=== PATIENT | male | born 1960 | race Caucasian/White ===

== ENCOUNTER 2021-08-25 14:41 | Emergency (ER) | payer MEDICARE, MEDICAID, SELFPAY ==
[2021-08-25 14:51] VITALS: BP 158/88; PULSE 113; PULSE 92; RESP 16; TEMP 36.9; O2SAT 96; BMI 23.5
--- NOTE | 2021-08-25 14:52 | ED.PSYCH ---
HPI - Psych General Chief Complaint: Psychiatric Symptoms Stated Complaint: crisis Time Seen by Provider: 08/25/21 14:44 Source: patient and EMS Mode of arrival: EMS Limitations: other (dementia - cognitive impairment) History of Present Illness complaint: other (agitation with staff at SNF) Onset (ago): day(s) (today) Duration: constant History of same: Yes Relieving factors: none Exacerbating factors: other (doesn't have money to buy cigarettes) Context: other (became agitated when he couldn't smoke a cigarette but he doesn't have money to buy them) Associated psychiatric symptoms: other (agitation) Associated symptoms: denies other symptoms Treatments prior to arrival: none Related Data Allergies Allergy/AdvReac Type Severity Reaction Status Date / Time No Known Allergies Allergy Verified 08/25/21 14:57 Review of Systems Review of Systems: ROS unable to be obtained due to dementia and cogntive impairment [facility] Past Medical History Source: nursing notes reviewed Medical History (Updated 08/25/21 @ 15:28 by Sindhu Pate DO) Dementia Diabetes HTN (hypertension) Schizophrenia Social History Social History (Updated 08/25/21 @ 14:55 by Sindhu Pate DO) Patient Tobacco Use Status: Current everyday Tobacco user Advance Directives: No Advance Directives Information Provided: No Physical Exam Vital Signs: Vital Signs: Last Vital Signs Temp 98.4 F 08/25/21 14:51 Pulse 92 08/25/21 14:51 Resp 16 08/25/21 14:51 Pulse Ox 96 08/25/21 14:51 BMI result Body Mass Index 23.5 Appearance: Alert. Oriented X to self. No acute distress. you like to fight? I'll kick all your asses. Eyes: Pupils equal, round and reactive to light. ENT: Pharynx normal. Neck: Normal inspection. Neck supple. CVS: Normal heart rate and rhythm. Pulses normal. Respiratory: No respiratory distress. Breath sounds normal. Abdomen: Soft and nontender. Skin: Skin warm and dry. Normal skin color. Normal skin turgor. Extremities: No lower extremity edema. No calf ttp Neuro: Oriented X 1. No motor deficit. No sensory deficit. Course Course Course Narrative: signed out to Taras CARVAJAL pending workup and CARE team consult MDM - Psych MDM Narrative Medical decision making narrative: 66 yo male with DM, HTN, schizophrenia, dementia here with c/o being agitated at his SNF due to not being able to smoke. He is making threats towards the staff because of this. He would be able to smoke if he had money per his reports. Will obtain basic labs and refer to CARE team. Lab Data Result diagrams: 08/25/21 15:15 08/25/21 15:15 Labs: Lab Results 08/25/21 08/25/21 08/25/21 Range/Units 15:15 15:15 15:15 WBC 6.2 (4.8-10.8) X10*3/uL RBC 4.14 L (4.60-5.80) X10*6/uL Hgb 12.4 L (14.0-18.0) g/dl Hct 35.3 L (42.0-52.0) % MCV 85.3 (80.0-98.0) fL MCH 30.0 (27.0-33.0) pg MCHC 35.1 (31.0-36.0) g/dl RDW 12.9 (11.0-16.0) % Plt Count 210 (160-400) X10*3/uL MPV 11.1 (9.4-12.4) fL Immature Gran % (Auto) 0.2 (0.0-0.4) % Neut % (Auto) 52.6 (45-73) % Lymph % (Auto) 33.9 (20-40) % [place] % (Auto) 12.2 H (2-11) % Eos % (Auto) 0.8 (0-4) % Baso % (Auto) 0.3 (0-2) % Lymph # (Auto) 2.1 (1.2-4.9) X10*3/uL [place] # (Auto) 0.8 (0.1-1.2) X10*3/uL Eos # (Auto) 0.1 (0.0-0.4) X10*3/uL Baso # (Auto) 0.0 (0.0-0.2) X10*3/uL Abs Immat Gran (auto) 0.01 (0.00-0.03) X10*3/uL Absolute Neuts (auto) 3.2 (2.0-8.3) x10*3/uL Absolute Nucleated RBC 0.000 (0.0-0.012) X10*3/uL Nucleated RBC % (auto) 0.0 (0.0-0.2) /100WBC Sodium 130 L (135-145) mmol/L Potassium 4.4 (3.3-5.1) mmol/L Chloride 97 (96-108) mmol/L Carbon Dioxide 21 L (22-29) mmol/L Anion Gap 16 (12-20) BUN 9 (9-16) mg/dL Creatinine 0.68 (0.5-1.4) mg/dL Estim Creat Clear Calc 107.3 Estimated GFR > 60 Random Glucose 165 H (60-115) mg/dL Calcium 9.3 (8.4-10.2) mg/dL Total Bilirubin 0.4 (0.0-1.0) mg/dL Direct Bilirubin 0.2 (0.0-0.5) mg/dL AST 7 (5-37) U/L ALT 7 (0-40) U/L Alkaline Phosphatase 58 (39-117) U/L Total Protein 6.9 (6.5-8.0) g/dL Albumin 4.0 (3.5-5.0) g/dL COVID-19 ([facility]) Negative (Negative) COVID-19 Clin Com See Note Discharge Plan Discharge Clinical Impression: Schizophrenia Qualifiers: Schizophrenia type: unspecified Qualified Code(s): F20.9 - Schizophrenia, unspecified Patient Disposition: Still a Patient
[2021-08-25 15:21] LABS: MANUAL DIFF FLAG NO
[2021-08-25 15:29] LABS: Basophils Percent Auto 0.3 % (0-2); Eosinophils Absolute Auto 0.1 X10*3/uL (0.0-0.4); Eosinophils Percent Auto 0.8 % (0-4); Hematocrit 35.3 % (42.0-52.0); Hemoglobin 12.4 g/dl (14.0-18.0); Imm Gran Abs Auto 0.01 X10*3/uL (0.00-0.03); Imm Gran Pct Auto 0.2 % (0.0-0.4); Lymphocytes Absolute Auto 2.1 X10*3/uL (1.2-4.9); Lymphocytes Percent Auto 33.9 % (20-40); Mean Corpuscular HGB Conc 35.1 g/dl (31.0-36.0); Mean Corpuscular Volume 85.3 fL (80.0-98.0); Mean Platelet Volume 11.1 fL (9.4-12.4); Monocytes Absolute Auto 0.8 X10*3/uL (0.1-1.2); Monocytes Percent Auto 12.2 % (2-11); Neutrophils Absolute Auto 3.2 x10*3/uL (2.0-8.3); Neutrophils Percent Auto 52.6 % (45-73); Platelet Count 210 X10*3/uL (160-400); Red Blood Count 4.14 X10*6/uL (4.60-5.80); Red Cell Distribution Width 12.9 % (11.0-16.0); White Blood Count 6.2 X10*3/uL (4.8-10.8)
[2021-08-25 15:38] LABS: Alanine Aminotransferase 7 U/L (0-40); Alkaline Phosphatase 58 U/L (39-117); Anion Gap 16 (12-20); Aspartate Amino Transferase 7 U/L (5-37); Bilirubin Direct 0.2 mg/dL (0.0-0.5); Bilirubin Total 0.4 mg/dL (0.0-1.0); Blood Urea Nitrogen 9 mg/dL (9-16); COVID-19 Test Negative (Negative); Calcium 9.3 mg/dL (8.4-10.2); Carbon Dioxide 21 mmol/L (22-29); Chloride 97 mmol/L (96-108); Creatinine Clr Calc Pharmacy 107.3; Estimated Glomerular Filt Rate > 60; Glucose Random 165 mg/dL (60-115); IDNOW Serial# 55D5AD1C; Potassium 4.4 mmol/L (3.3-5.1); Sodium 130 mmol/L (135-145); Total Protein 6.9 g/dL (6.5-8.0)
[2021-08-25] MEDS: Nicotine 14 MG PATCH.TD24 TRANSDERMA (16:14)
[2021-08-25 20:20] LABS: Appearance Urine HAZY; Color Urine STRAW; Glucose Urine UA 100 MG/DL (NEG); Leukocyte Esterase Urine NEG (NEG); Nitrite Urine NEG (NEG); Specific Gravity - Urine <= 1.005 (1.005-1.025); Urine Blood NEG (NEG); Urine Ketones NEG (NEG); Urine Protein NEG (NEG-TRACE)
[2021-08-25 20:36] LABS: Amphetamine Screen Urine Not Detected (Not Detect); Barbiturates, Urine Not Detected (Not Detect); Benzodiazepines Screen Urine Not Detected (Not Detect); Cannabinoid Screen Urine Not Detected (Not Detect); Cocaine Screen Urine Not Detected (Not Detect); Fentanyl, urine Not Detected (Not Detect); Opiate Screen Urine Not Detected (Not Detect); Phencyclidine Screen Urine Not Detected (Not Detect)
--- NOTE | 2021-08-25 20:55 | PHA.MEDREC ---
Pharmacy Consult ? Medication Reconciliation Nursing has completed the medication reconciliation and Pharmacy has reviewed.
[2021-08-25 21:01] LABS: Acetaminophen LAB < 1 mcg/mL (<30); Salicylate < 5.0 mg/dL (15-30)
[2021-08-25 21:06] LABS: Valproate 69.9 mcg/mL (50.0-100.0)
[2021-08-25 21:21] LABS: TSH reflex Free T4 1.44 uIU/mL (0.32-4.0)
--- NOTE | 2021-08-25 21:30 | MHC.CARE ---
Addendum entered by Elizabet Ying, [facility] 08/26/21 02:27: Other information gathered from collateral and documentation sent with pt: HCP is invoked, Kalyani Miranda Jordan [phone] Sinan's Order exp 11/29/2021 Haldol 5mg QAMl 10mg QHS, 5mg BID Alternative: Clozaril 50-250mg QD Invega 9-12mg, 234mg Q8D Dx Schizoaffective disorder, Parkinson's, Mild Cognitive Decline Original Note: CARE team contacted [facility] bindery production manager school business administrator Abeba Wells NP. Abeba reported that the pt has been exhibiting increasing agitation and hallucinations and was not responding to additional 5mg olanzapine TID PRN that was started on Thursday08/23/21. She is requesting that the pt be evaluated by crisis and psychiatry. BHN smart sheet sent. ETA 3rd shift.
[2021-08-25] MEDS: OLANZapine 5 MG TABLET PO (21:37)
[2021-08-25] MEDS: OLANZapine 10 MG TABLET PO (21:37)
[2021-08-25] MEDS: Acetaminophen 325 MG TABLET 650 MG PO (23:06)
[2021-08-25 23:26] VITALS: BP 181/93; PULSE 126; RESP 17; TEMP 36.5; O2SAT 96
[2021-08-25] MEDS: Nicotine Polacrilex 2 MG GUM BUCCAL (23:42)
[2021-08-26] MEDS: Nicotine Polacrilex 2 MG GUM BUCCAL ×2 (04:12→12:28)
[2021-08-26 04:40] VITALS: RESP 20
[2021-08-26] MEDS: OLANZapine 10 MG VIAL 5 MG IM (04:40)
--- NOTE | 2021-08-26 04:52 | PC.NURSE ---
Patient was whole night, loud, restless, and disruptive, requiring constant redirection, at 0400 patient was even more louder, disruptive, and intrusive, provider notified ordered Olanzapine 5 mg IM/administered as ordered at 0440 for comfort, patient is still loud and disruptive, observed on 1:1 for safety, patient is awaiting BHN assessment for over 10 hours and no update on ETA, VSS, will continue to monitor.
[2021-08-26 04:55] VITALS: RESP 20
[2021-08-26 05:10] VITALS: RESP 20
[2021-08-26 05:25] VITALS: RESP 20
[2021-08-26 05:40] VITALS: RESP 20
--- NOTE | 2021-08-26 06:31 | PC.NURSE ---
Patient is still awake, loud and disruptive, no effect from Olanzapine 5 mg IM, patient needs constant redirection, will continue to monitor.
[2021-08-26] MEDS: Divalproex Sodium Sprinkles 125 MG CAP.DR.SPR 500 MG PO ×2 (08:23→12:28)
[2021-08-26] MEDS: glipiZIDE 10 MG TABLET PO (08:23)
[2021-08-26] MEDS: Gabapentin 300 MG CAPSULE PO (08:23)
[2021-08-26] MEDS: Benztropine Mesylate 1 MG TABLET PO (08:24)
[2021-08-26] MEDS: Losartan Potassium 50 MG TABLET PO (08:24)
[2021-08-26] MEDS: amLODIPine Besylate 10 MG TABLET PO (08:24)
[2021-08-26] MEDS: OLANZapine 10 MG TABLET PO (08:24)
[2021-08-26] MEDS: metFORMIN HCl 1,000 MG TABLET 1000 MG PO (08:24)
== END 2021-08-26 15:11 | disposition skilled nursing facility (03) ==
PROVIDERS: Physician Assistant; Emergency Provider Emergency Medicine; PCP Internal Medicine
DX: F20.9 Schizophrenia, unspecified (principal); E11.9 Type 2 diabetes mellitus without complications; I10 Essential (primary) hypertension; F03.90 Unspecified dementia, unspecified severity, without behavioral disturbance, psychotic disturbance, mood disturbance, and anxiety; F17.200 Nicotine dependence, unspecified, uncomplicated; Z20.822 Contact with and (suspected) exposure to COVID-19
CPT/HCPCS: 36415; 80048; 80076; 80143; 80164; 80179; 80307; 81003; 84443; 85025; 87635; 96372; 99285

== ENCOUNTER 2023-02-13 13:38 | Inpatient (IN) | payer MEDICARE, MEDICAID, SELFPAY ==
--- NOTE | ~2023-02-13 | CT_ITS ---
EXAMINATION: CT ANGIOGRAM OF THE CHEST WITH AND WITHOUT CONTRAST (CT PULMONARY ANGIOGRAM FOR PE) CLINICAL INFORMATION: Reason for Exam Hypoxia; Also COVID Positve COMPARISON: Chest x-ray 02/14/2023 TECHNIQUE: Prior to contrast administration, noncontrast localization images were obtained. Subsequently, multidetector volumetric imaging was performed from the thoracic inlet to below the diaphragms following the administration of 70 mL Omnipaque 350 intravenous contrast. No contrast reaction reported Sagittal, coronal, and MIP oblique sagittal reformatted images were obtained on the CT workstation, uploaded to PACS, and reviewed. This CT examination was performed using dose optimization techniques as appropriate, variously including the following: *Automated exposure control *Adjustment of mA and/or kV according to patient size (this includes techniques or standardized protocols for targeted exams where dose is matched to indication/reason for exam; i.e. extremities or head) *Use of iterative reconstruction technique Total exam dose-length product 352 mGy-cm FINDINGS: QUALITY OF STUDY/CONTRAST BOLUS: Satisfactory. PULMONARY ARTERIES: No central or proximal segmental pulmonary embolus is seen. However, there is limited evaluation of much of the distal vasculature due to respiratory motion artifact. THORACIC AORTA: No evidence of aortic aneurysm or dissection. LUNG: Endotracheal tube tip lies approximately 4 cm above the asher. There are multifocal patchy consolidations in the left upper lobe. Region of atelectasis in the lingula. The left lower lobe is completely opacified and demonstrates volume loss, consistent with collapse, though component of superimposed consolidation cannot be excluded. Left lower lobe airways are opacified. There is patchy consolidation in the posterior right lower lobe. There is a nodular focus in the right middle lobe measuring 9 x 5 mm (average 7 mm) on image 286/481. PLEURA: Trace pleural effusions. No pneumothorax. MEDIASTINUM: Thyroid gland is somewhat heterogeneous. There are subcentimeter mediastinal lymph nodes within the range of normal variation. Cardiac size is within normal limits; no pericardial effusion. No evidence of septal bowing or right heart strain. CORONARY ARTERY CALCIFICATION: Present CHEST WALL/AXILLA: No axillary or internal mammary lymphadenopathy. OSSEOUS STRUCTURES: Degenerative endplate changes in the spine. UPPER ABDOMEN: Unremarkable. No reflux of contrast into the hepatic veins to suggest elevated right heart pressures. CT/CT angio chest PE protocol IMPRESSION: 1. No central or proximal segmental pulmonary embolus identified. Limited evaluation of much of the distal vasculature due to respiratory motion artifact. 2. Multifocal patchy consolidations in the left upper lobe and right lower lobe, consistent with pneumonia. 3. Complete opacification of the left lower lobe with volume loss, consistent with collapse, though component of superimposed consolidation cannot be excluded. Left lower lobe airways are opacified, and therefore this may represent postobstructive atelectasis. 4. Trace pleural effusions. 5. Right middle lobe nodular focus with average size of 7 mm. According to the UPDATED 2017 Fleischner Society recommendations, the advised follow-up imaging for a single 6-8 mm solid nodule is: LOW RISK PATIENT: CT at 6-12 months, then consider CT at 18-24 months. HIGH RISK PATIENT: CT at 6-12 months, then at 18-24 months. VTE: negative.
--- NOTE | ~2023-02-13 | XR_ITS ---
EXAMINATION: XR CHEST CLINICAL INFORMATION: Status post bronchoscopy. COMPARISON: Chest radiograph dated 02/14/2023. TECHNIQUE: Frontal view of the chest was obtained. FINDINGS: The heart, great vessels, pulmonary vasculature and mediastinum are stable, accounting for patient rotation. The endotracheal tube tip is situated approximately 3.9 cm superior to the asher. An orogastric tube is seen with tip situated distal to the gastric cardia and cut off of the field of view. The orogastric tube appears somewhat coiled within the mouth. There is significant interim improvement in aeration of the left lung, with mild to moderate residual left lower lung field pleural and parenchymal disease. The right lung appears clear. There is no pneumothorax. No acute osseous abnormality is seen. XR/XR chest 1V IMPRESSION: 1. There is significant interim improvement in aeration status-post bronchoscopy. Mild to moderate residual left base pleural and parenchymal disease is seen. There is no pneumothorax. 2. Support tubes and catheters are positioned as detailed.
--- NOTE | ~2023-02-13 | XR_ITS ---
EXAMINATION: XR CHEST CLINICAL INFORMATION: Hypoxia COMPARISON: Previous chest x-ray most recent February 15 TECHNIQUE: Frontal view of the chest was obtained. FINDINGS: Endotracheal tube tip 5.6 cm above the asher. Nasogastric tube projects over proximal stomach. Cardiac and mediastinal contours are stable. Improving left-sided airspace disease and airspace disease at the right lung base. No pleural effusion or pneumothorax. XR/XR chest 1V IMPRESSION: Satisfactory position of endotracheal and nasogastric tubes. Improving bilateral airspace disease, left greater than right
--- NOTE | ~2023-02-13 | XR_ITS ---
EXAMINATION: XR CHEST CLINICAL INFORMATION: Endotracheal tube placement COMPARISON: 02/14/2023 TECHNIQUE: Frontal view of the chest was obtained. FINDINGS: Endotracheal tube with tip in the midtrachea. Enteric tube with tip in the stomach. A side hole is in the distal esophagus. The cardiac silhouette is obscured. There is volume loss of the left lung with near complete opacification. There is abrupt tapering of the left mainstem bronchus. The right lung is clear. No pleural effusion or pneumothorax. No acute osseous abnormality. XR/XR chest 1V IMPRESSION: 1. Endotracheal tube with tip in the midtrachea. 2. Enteric tube with tip in the stomach. A side hole is in the distal esophagus. 3. Volume loss of the left lung with near complete opacification. Abrupt tapering of the left mainstem bronchus, which may reflect mucous plugging.
--- NOTE | ~2023-02-13 | XR_ITS ---
EXAMINATION: XR CHEST CLINICAL INFORMATION: Hypoxia. Covid COMPARISON: 02/14/23 TECHNIQUE: Upright frontal portable view of the chest was obtained. FINDINGS: Multiple devices overlie the patient. The patient is tilted to the left. The endotracheal tube is approximately 5 cm above asher. Enteric tube extends into the abdomen tip not included. The port is at or near the expected GE junction Cardiac size within normal limits. No large hilar mass. There is opacification at the left base medially. There are some scattered left perihilar opacities. No pneumothorax XR/XR chest 1V IMPRESSION: Limited study. Left base opacity persists. Perihilar opacities likely unchanged but positioning limits detail
--- NOTE | ~2023-02-13 | XR_ITS ---
EXAMINATION: CR CHEST CLINICAL INFORMATION: Hypoxia. COMPARISON: Chest x-ray dated 02/13/2023. TECHNIQUE: AP upright portable view of the chest was obtained. FINDINGS: EKG leads overlie the chest. The cardiomediastinal silhouette is within normal limits in size. Lungs bilaterally are symmetrically expanded. There is dense opacity seen in the retrocardiac left lung base with complete obscuration of the left hemidiaphragm, possibly due to a combination of small volume fluid and either associated atelectasis or pneumonia. There is associated volume loss in the left hemithorax and there may be slight shift of the mediastinum toward the left side versus artifactual appearance related to patient rotation and slight tilt. The right lung is fully inflated and without focal pulmonary process. Mild convex right thoracolumbar scoliosis is seen, unchanged. XR/XR chest 1V IMPRESSION: Dense opacity in the retrocardiac left lung base, possibly due to a combination of small volume fluid and associated left basilar atelectasis or pneumonia. Close clinical correlation and follow-up is recommended. Consider PA and lateral view of the chest for reassessment.
--- NOTE | ~2023-02-13 | XR_ITS ---
EXAMINATION: XR CHEST CLINICAL INFORMATION: Hypoxic COMPARISON: None available. TECHNIQUE: Frontal view of the chest was obtained. FINDINGS: Heart and mediastinum within normal limits. No gross vascular congestion. Mild increased basilar markings, left greater than right. Bony structures are intact. XR/XR chest 1V IMPRESSION: Bibasilar increased markings, likely atelectasis, pneumonia not excluded, particularly in the retrocardiac region.
[2023-02-13 14:07] VITALS: BP 178/90; PULSE 103; PULSE 120; RESP 24; TEMP 38.1; O2SAT 86; O2SAT 91; BMI 19.7
--- NOTE | 2023-02-13 14:14 | ECG_ITS ---
Test Reason : SOB Blood Pressure : / mmHG Vent. Rate : 117 BPM Atrial Rate : 117 BPM P-R Int : 130 ms QRS Dur : 084 ms QT Int : 310 ms P-R-T Axes : 058 -47 081 degrees QTc Int : 432 ms Sinus tachycardia Left anterior fascicular block Left ventricular hypertrophy with repolarization abnormality ( R in aVL ) Abnormal ECG No previous ECGs available Referred By: Destinee Dillon Electronically Signed By:DANAE KAISER MD
--- NOTE | 2023-02-13 14:18 | ED_ITS ---
HPI - SOB/Dyspnea General Chief Complaint: Dyspnea Stated Complaint: LOW O2 Time Seen by Provider: 02/13/23 13:48 Source: EMS Mode of arrival: EMS Limitations: altered mental status History of Present Illness HPI Narrative: Patient comes to the emergency room from [facility] [place]. Patient is nonverbal at baseline. According to EMS, the staff reported that they found the patient during nursing rounds to be hypoxic, oxygen saturation 86% on room air, tachypneic. Patient is not oxygen dependent. Patient does have history of COPD with hypoxic respiratory failure. According to EMS, the patient's nurse at the facility had never work with him before and did not know any specifics about the patient's baseline. Related Data Home Medications Medication Instructions Recorded Confirmed Nicorette 2 mg PO Q1H PRN Nicotine Cravings 08/25/21 08/25/21 amlodipine 10 mg tablet 10 mg PO QAM 08/25/21 08/25/21 benztropine 1 mg tablet 1 mg PO BID@0900,1700 08/25/21 08/25/21 divalproex 125 mg capsule,delayed 500 mg PO BID@0900,1700 08/25/21 08/25/21 release sprinkle divalproex 125 mg capsule,delayed 500 mg PO DAILY@1300 08/25/21 08/25/21 release sprinkle gabapentin 300 mg tablet 300 mg PO BID 08/25/21 08/25/21 glipizide 10 mg tablet, extended 10 mg PO DAILY 08/25/21 08/25/21 release 24 hr losartan 50 mg tablet 50 mg PO QAM 08/25/21 08/25/21 metformin 1,000 mg tablet 1,000 mg PO BID@0900,1700 08/25/21 08/25/21 olanzapine 10 mg tablet 10 mg PO BID 08/25/21 08/25/21 olanzapine 5 mg tablet 5 mg PO TID PRN Agitation 08/25/21 08/25/21 Allergies Allergy/AdvReac Type Severity Reaction Status Date / Time No Known Allergies Allergy Verified 02/13/23 14:06 Review of Systems 2 Review of Systems: Yes Unobtainable due to mental condition PMFSH Past Medical History Medical History COPD (chronic obstructive pulmonary disease) HTN (hypertension) Diabetes Schizophrenia Dementia Social History Social History (Updated 08/25/21 @ 14:55 by Cecelia Pate DO) Alcohol intake: unknown Patient Tobacco Use Status: Current everyday Tobacco user Advance Directives: Yes Advance Directives on File: Yes Advance Directives Date on File: 08/27/21 Physical Exam 2 Vital Signs: Vital Signs: Last Vital Signs Temp 98.5 F 02/13/23 16:13 Pulse 84 02/13/23 17:52 Resp 21 H 02/13/23 17:52 BP 142/73 H 02/13/23 17:52 Pulse Ox 99 02/13/23 17:52 O2 Del Method Nasal Cannula 02/13/23 17:52 O2 Flow Rate 6 02/13/23 17:52 Oxygen Flow Rate 15 02/13/23 14:07 BMI result Body Mass Index 19.7 Const: Other: Appearance: Somnolent, easily arousable, nonverbal, lethargic Eyes: Pupils equal, round and reactive to light. ENT: Dry mucous membranes Neck: Normal inspection. Neck supple. No lymph nodes noted. No crepitus CVS: Normal heart rate and rhythm. Pulses normal. Normal S1 and S2 Respiratory: Tachypnea, heart rate in the 30s, bilateral rales and crackles. Abdomen: Soft , does not seem tender, No rigidity. No distention. Skin: Skin warm and clammy. Normal skin color. Normal skin turgor. Extremities: No lower extremity edema. No Lacerations. No Rash Neuro: Somnolent, easily arousable, unable to participate in cranial nerve assessment Psych: calm, lethargic Course Course Course Narrative: -of the patient's labs and imaging pending. -patient arrived on 10 L of oxygen saturating 93%. Patient now switched to nasal cannula, saturating in the mid 90s with 4 L. -patient empirically being treated with IV fluids and levofloxacin. Medications Administered Discontinued Medications Generic Name Dose Route Start Last Admin Trade Name Freq PRN Reason Stop Dose Admin Acetaminophen 650 mg 02/13/23 14:20 02/13/23 15:06 Acetaminophen Supp 650 Mg Supp.Rect SC 02/13/23 14:21 650 mg ONCE ONE Administration Sodium Chloride 1,000 mls @ 999 mls/hr 02/13/23 14:14 02/13/23 16:07 Ns IVCONT 02/13/23 15:14 Infused .Q1H1M ONE Infusion Levofloxacin 500 mg in 100 mls @ 100 mls/hr 02/13/23 14:18 02/13/23 16:29 Levaquin IV 02/13/23 15:17 Infused ONCE ONE Infusion Medical Decision Making Medical Decision Making [facility] Narrative: -patient tested positive for COVID-19, patient hypoxic, patient known 6 L of oxygen -as mentioned above, patient already received IV fluids, levofloxacin Decadron -my interpretation of chest x-ray: Possible pneumonia especially in the left lobe -discussed the patient with Dr. Boswell, patient being admitted Differential Diagnosis Differential Diagnoses: The differential diagnosis associated with the presentation includes (Influenza, COVID, pneumonia, COPD) Admission/Observation Consideration of admission/observation: Escalation of care including admission/observation considered Consult Healthcare Provider Management of the patient was discussed with: Hospitalist Lab Data [facility] Lab Attestation statement: I reviewed the patient's lab results. 02/13/23 15:05 02/13/23 15:05 Labs: Lab Results 02/13/23 02/13/23 02/13/23 Range/Units 14:52 15:03 15:05 WBC 6.6 (4.8-10.8) X10*3/uL RBC 4.20 L (4.60-5.80) X10*6/uL Hgb 12.7 L (14.0-18.0) g/dl Hct 38.3 L (42.0-52.0) % MCV 91.2 (80.0-98.0) fL MCH 30.2 (27.0-33.0) pg MCHC 33.2 (31.0-36.0) g/dl RDW 13.2 (11.0-16.0) % Plt Count 284 D (160-400) X10*3/uL MPV 10.7 (9.4-12.4) fL Immature Gran % (Auto) 2.0 H (0.0-0.4) % Neut % (Auto) 57.5 (45-73) % Lymph % (Auto) 27.1 (20-40) % [place] % (Auto) 12.9 H (2-11) % Eos % (Auto) 0.3 (0-4) % Baso % (Auto) 0.2 (0-2) % Lymph # (Auto) 1.8 (1.2-4.9) X10*3/uL [place] # (Auto) 0.9 (0.1-1.2) X10*3/uL Eos # (Auto) 0.0 (0.0-0.4) X10*3/uL Baso # (Auto) 0.0 (0.0-0.2) X10*3/uL Abs Immat Gran (auto) 0.13 H (0.00-0.03) X10*3/uL Absolute Neuts (auto) 3.8 (2.0-8.3) x10*3/uL Absolute Nucleated RBC 0.000 (0.0-0.012) X10*3/uL Nucleated RBC % (auto) 0.0 (0.0-0.2) /100WBC PT 12.9 (11.1-13.3) SEC INR 1.1 (0.9-1.1) VBG pH (7.32-7.43) VBG pCO2 mmHg VBG pO2 mmHg VBG HCO3 (22-26) mmol/L VBG O2 Saturation % VBG Base Excess mmol/L Sodium 139 (135-145) mmol/L Potassium 4.0 (3.3-5.1) mmol/L Chloride 108 (96-108) mmol/L Carbon Dioxide 22 (22-29) mmol/L Anion Gap 13 (12-20) BUN 14 (9-16) mg/dL Creatinine 0.57 (0.5-1.4) mg/dL Estim Creat Clear Calc 122.0 Estimated GFR > 60 Random Glucose 164 H (60-115) mg/dL Lactic Acid 0.8 (0.5-2.0) mmol/L Calcium 9.5 (8.4-10.2) mg/dL Total Bilirubin 0.4 (0.0-1.0) mg/dL Direct Bilirubin 0.2 (0.0-0.5) mg/dL AST 29 (5-37) U/L ALT 18 (0-40) U/L Alkaline Phosphatase 54 (39-117) U/L Troponin I High Sens 10.3 (<3.5-35.0) ng/L B-Natriuretic Peptide 30 (<100) pg/mL Total Protein 6.7 (6.5-8.0) g/dL Albumin 3.3 L (3.5-5.0) g/dL COVID-19 ([facility]) Positive A (Negative) COVID-19 Clin Com See Note Influenza Type A ([facility]) Negative (Negative) Influenza Type B ([facility]) Negative (Negative) Influenza A & B Note See Note 02/13/23 Range/Units 15:12 WBC (4.8-10.8) X10*3/uL RBC (4.60-5.80) X10*6/uL Hgb (14.0-18.0) g/dl Hct (42.0-52.0) % MCV (80.0-98.0) fL MCH (27.0-33.0) pg MCHC (31.0-36.0) g/dl RDW (11.0-16.0) % Plt Count (160-400) X10*3/uL MPV (9.4-12.4) fL Immature Gran % (Auto) (0.0-0.4) % Neut % (Auto) (45-73) % Lymph % (Auto) (20-40) % [place] % (Auto) (2-11) % Eos % (Auto) (0-4) % Baso % (Auto) (0-2) % Lymph # (Auto) (1.2-4.9) X10*3/uL [place] # (Auto) (0.1-1.2) X10*3/uL Eos # (Auto) (0.0-0.4) X10*3/uL Baso # (Auto) (0.0-0.2) X10*3/uL Abs Immat Gran (auto) (0.00-0.03) X10*3/uL Absolute Neuts (auto) (2.0-8.3) x10*3/uL Absolute Nucleated RBC (0.0-0.012) X10*3/uL Nucleated RBC % (auto) (0.0-0.2) /100WBC PT (11.1-13.3) SEC INR (0.9-1.1) VBG pH 7.61 H* (7.32-7.43) VBG pCO2 21 mmHg VBG pO2 266 mmHg VBG HCO3 22 (22-26) mmol/L VBG O2 Saturation 100.0 % VBG Base Excess 2.8 mmol/L Sodium (135-145) mmol/L Potassium (3.3-5.1) mmol/L Chloride (96-108) mmol/L Carbon Dioxide (22-29) mmol/L Anion Gap (12-20) BUN (9-16) mg/dL Creatinine (0.5-1.4) mg/dL Estim Creat Clear Calc Estimated GFR Random Glucose (60-115) mg/dL Lactic Acid (0.5-2.0) mmol/L Calcium (8.4-10.2) mg/dL Total Bilirubin (0.0-1.0) mg/dL Direct Bilirubin (0.0-0.5) mg/dL AST (5-37) U/L ALT (0-40) U/L Alkaline Phosphatase (39-117) U/L Troponin I High Sens (<3.5-35.0) ng/L B-Natriuretic Peptide (<100) pg/mL Total Protein (6.5-8.0) g/dL Albumin (3.5-5.0) g/dL COVID-19 ([facility]) (Negative) COVID-19 Clin Com Influenza Type A ([facility]) (Negative) Influenza Type B ([facility]ENE) (Negative) Influenza A & B Note Independent Interpretation I performed an independent interpretation of an: Plain X-Ray Radiology Impression Discussion of test interpretation with radiology: I have reviewed the radiologist's reading. Radiologist Impression: FINDINGS: Heart and mediastinum within normal limits. No gross vascular congestion. Mild increased basilar markings, left greater than right. Bony structures are intact. XR/XR chest 1V IMPRESSION: Bibasilar increased markings, likely atelectasis, pneumonia not excluded, particularly in the retrocardiac region. External Record Review External record reviewed: Other (I reviewed [facility] medical records) Critical Care Time Critical Care Time Critical Care Time: Yes Total Critical Care Time: 75 Attestation: I have personally provided critical care time. Time includes review of lab data, radiology results, discussion with consultants, and monitoring for potential decompensation. Intervention performed as documented. Discharge Plan Discharge Clinical Impression: COVID-19, Pneumonia Patient Disposition: Admitted As Inpatient Prescriptions: No Action amlodipine 10 mg Tablet 10 mg PO QAM benztropine 1 mg Tablet 1 mg PO BID@0900,1700 divalproex 125 mg Capsule, Delayed Rel Sprinkle 500 mg PO BID@0900,1700 divalproex 125 mg Capsule, Delayed Rel Sprinkle 500 mg PO DAILY@1300 gabapentin 300 mg Tablet 300 mg PO BID losartan 50 mg Tablet 50 mg PO QAM metformin 1,000 mg Tablet 1,000 mg PO BID@0900,1700 olanzapine 10 mg Tablet 10 mg PO BID olanzapine 5 mg Tablet 5 mg PO TID PRN (Reason: Agitation) Nicorette 2 mg 2 mg PO Q1H PRN (Reason: Nicotine Cravings) glipizide 10 mg Tablet Extended Release 24hr 10 mg PO DAILY
[2023-02-13 14:56] VITALS: PULSE 115; RESP 26; O2SAT 93
[2023-02-13] MEDS: Acetaminophen Supp 650 MG SUPP.RECT PR (15:06)
[2023-02-13] MEDS: levoFLOXacin/D5W 500 MG/100 ML PIGGYBACK 100 MG IV (15:06)
[2023-02-13] MEDS: 0.9 % Sodium Chloride 1,000 ML 999 ML IVCONT (15:06)
[2023-02-13 15:14] LABS: MANUAL DIFF FLAG NO
[2023-02-13 15:20] LABS: VBG Base Excess 2.8 mmol/L; VBG HCO3 22 mmol/L (22-26); VBG pCO2 21 mmHg; VBG pH 7.61 (7.32-7.43); VBG pO2 266 mmHg
[2023-02-13 15:21] LABS: INTERNATIONAL NORM RATIO 1.1 (0.9-1.1); Prothrombin Time 12.9 SEC (11.1-13.3)
[2023-02-13 15:26] LABS: Basophils Percent Auto 0.2 % (0-2); Eosinophils Percent Auto 0.3 % (0-4); Hematocrit 38.3 % (42.0-52.0); Hemoglobin 12.7 g/dl (14.0-18.0); Imm Gran Abs Auto 0.13 X10*3/uL (0.00-0.03); Lymphocytes Absolute Auto 1.8 X10*3/uL (1.2-4.9); Lymphocytes Percent Auto 27.1 % (20-40); Mean Corpuscular HGB Conc 33.2 g/dl (31.0-36.0); Mean Corpuscular Hemoglobin 30.2 pg (27.0-33.0); Mean Corpuscular Volume 91.2 fL (80.0-98.0); Mean Platelet Volume 10.7 fL (9.4-12.4); Monocytes Absolute Auto 0.9 X10*3/uL (0.1-1.2); Monocytes Percent Auto 12.9 % (2-11); Neutrophils Absolute Auto 3.8 x10*3/uL (2.0-8.3); Neutrophils Percent Auto 57.5 % (45-73); Platelet Count 284 X10*3/uL (160-400); Red Cell Distribution Width 13.2 % (11.0-16.0); White Blood Count 6.6 X10*3/uL (4.8-10.8)
[2023-02-13 15:28] LABS: Venous Blood Gas Refer to POC result
[2023-02-13 15:30] LABS: Alanine Aminotransferase 18 U/L (0-40); Albumin Level 3.3 g/dL (3.5-5.0); Alkaline Phosphatase 54 U/L (39-117); Anion Gap 13 (12-20); Aspartate Amino Transferase 29 U/L (5-37); Bilirubin Direct 0.2 mg/dL (0.0-0.5); Bilirubin Total 0.4 mg/dL (0.0-1.0); Blood Urea Nitrogen 14 mg/dL (9-16); Calcium 9.5 mg/dL (8.4-10.2); Carbon Dioxide 22 mmol/L (22-29); Chloride 108 mmol/L (96-108); Estimated Glomerular Filt Rate > 60; Glucose Random 164 mg/dL (60-115); Sodium 139 mmol/L (135-145); Total Protein 6.7 g/dL (6.5-8.0)
[2023-02-13 15:30] LABS: Lactic Acid 0.8 mmol/L (0.5-2.0)
[2023-02-13 15:33] LABS: COVID-19 Test Positive (Negative); IDNOW Serial# BCCEAD1C
[2023-02-13 15:34] LABS: B Type Natriuretic Peptide 30 pg/mL (<100)
[2023-02-13 15:37] LABS: Troponin-I High Sensitivity 10.3 ng/L (<3.5-35.0)
[2023-02-13 15:41] LABS: IDNOW Serial# 08D9AD1C; Influenza A Negative (Negative); Influenza B2 Negative (Negative)
--- NOTE | 2023-02-13 15:58 | PC.NURSE ---
xray bedside at this time.
[2023-02-13 16:13] VITALS: BP 146/68; PULSE 94; RESP 18; TEMP 36.9; O2SAT 90
--- NOTE | 2023-02-13 16:14 | PC.NURSE ---
pt O2 decreased to 86% on 3L via NC. pt increased 6L via NC - resting between 90%-91%. otherwise vss and up to date. pt still lethargic at this time. pt able to make eye contact w/ verbal stimuli/sternal rub. still no urine to obtain at this time - will send urine when able. no wob/sob noted at this time. respirations even and unlabored at this time. call reed placed within reach.
[2023-02-13 17:52] VITALS: BP 142/73; PULSE 84; RESP 21; O2SAT 99
[2023-02-13 18:40] LABS: Appearance Urine Clear; Color Urine Yellow; Glucose Urine UA 100 mg/dL (Negative); Leukocyte Esterase Urine Negative (Negative); Nitrite Urine Negative (Negative); Urine Blood Negative (Negative); Urine Ketones 40 mg/dL (Negative); Urine Protein Negative (Neg-Trace)
[2023-02-13] MEDS: dexAMETHasone sod phosphate 4 MG/ML VIAL 6 MG IVPUSH (18:46)
--- NOTE | 2023-02-13 18:50 | PC.NURSE ---
pt medicated per provider order. respirations even and unlabored at this time. call reed placed within reach.
--- NOTE | 2023-02-13 19:15 | P.HPHOSP_ITS ---
History of Present Illness Date of Service: 02/13/23 Chief Complaint: Hypoxia This is a 62-year-old male with pertinent history of essential hypertension, non insulin-dependent diabetes mellitus, mood disorder who was sent to the emergency department for evaluation of hypoxemia. Patient is nonverbal at baseline. Unable to obtain history from the patient. History obtained from ER provider and chart review. Patient was sent from [facility] [place]. He he does not use oxygen at baseline. He was found to be tachypneic and satting 86% on room air and sent to the ER for further evaluation. In the emergency department, patient tested positive for COVID-19. Unable to obtain review of systems. Review of Systems 2 Review of Systems: Yes Unobtainable due to mental condition PMFSH Medical History COPD (chronic obstructive pulmonary disease) HTN (hypertension) Diabetes Schizophrenia Dementia Pertinent family history: Unable to obtain Social History Unable to assess alcohol history related to: Unknown Alcohol intake: unknown Patient Tobacco Use Status: Current everyday Tobacco user Use of substances other than those prescribed or required for medical reasons: Unknown Advance Directives: Yes Advance Directives on File: Yes Advance Directives Date on File: 08/27/21 Meds Allergies Allergy/AdvReac Type Severity Reaction Status Date / Time No Known Allergies Allergy Verified 02/13/23 14:06 Home Medications Medication Instructions Recorded Confirmed Last Taken Type benztropine 1 mg tablet 1 mg PO BID 02/13/23 02/13/23 Unknown History divalproex 250 mg tablet,delayed 250 mg PO DAILY 02/13/23 02/13/23 Unknown History release divalproex 500 mg tablet,delayed 1,000 mg PO BID 02/13/23 02/13/23 Unknown History release famotidine 20 mg tablet 20 mg PO BID 02/13/23 02/13/23 Unknown History gabapentin 300 mg capsule 300 mg PO BID 02/13/23 02/13/23 Unknown History losartan 25 mg tablet 25 mg PO DAILY 02/13/23 02/13/23 Unknown History metformin 1,000 mg tablet 1,000 mg PO BID 02/13/23 02/13/23 Unknown History olanzapine 15 mg tablet 15 mg PO BEDTIME 02/13/23 02/13/23 Unknown History olanzapine 20 mg tablet 20 mg PO BEDTIME 02/13/23 02/13/23 Unknown History paliperidone 9 mg tablet,extended 9 mg PO DAILY 02/13/23 02/13/23 Unknown History release 24 hr paliperidone palmitate 234 mg/1.5 234 mg IM Q28D 02/13/23 02/13/23 Unknown History mL intramuscular syringe ([employer]) permethrin 5 % topical cream 1 appl topical ONCE 02/13/23 02/13/23 Unknown History Physical Exam 2 Vital Signs and Narrative: Vital Signs: Last Vital Signs Temp 98.5 F 02/13/23 16:13 Pulse 84 02/13/23 17:52 Resp 21 H 02/13/23 17:52 BP 142/73 H 02/13/23 17:52 Pulse Ox 99 02/13/23 17:52 O2 Del Method Nasal Cannula 02/13/23 17:52 O2 Flow Rate 6 02/13/23 17:52 Oxygen Flow Rate 15 02/13/23 14:07 BMI result Body Mass Index 19.7 Middle-aged male lying in bed in mild distress on supplemental oxygen Neck supple, no JVD Regular rate and rhythm, S1-S2 heard Bilateral crackles without wheezing Abdomen soft nontender, no guarding, no rigidity Patient is lethargic and eye opening to verbal stimulus, non conversational Psych: Drowsy No pedal edema Results Labs 02/13/23 15:05 02/13/23 15:05 Labs: Laboratory Results - last 24 hr 02/13/23 02/13/23 02/13/23 14:52 15:03 15:05 MCV 91.2 MCH 30.2 MCHC 33.2 RDW 13.2 Plt Count 284 D MPV 10.7 Immature Gran % (Auto) 2.0 H Neut % (Auto) 57.5 Lymph % (Auto) 27.1 [place] % (Auto) 12.9 H Eos % (Auto) 0.3 Baso % (Auto) 0.2 Lymph # (Auto) 1.8 [place] # (Auto) 0.9 Eos # (Auto) 0.0 Baso # (Auto) 0.0 Abs Immat Gran (auto) 0.13 H Absolute Neuts (auto) 3.8 Absolute Nucleated RBC 0.000 Nucleated RBC % (auto) 0.0 PT 12.9 INR 1.1 VBG pH VBG pCO2 VBG pO2 VBG HCO3 VBG O2 Saturation VBG Base Excess Anion Gap 13 Estim Creat Clear Calc 122.0 Estimated GFR > 60 Random Glucose 164 H Lactic Acid 0.8 Calcium 9.5 Total Bilirubin 0.4 Direct Bilirubin 0.2 AST 29 ALT 18 Alkaline Phosphatase 54 B-Natriuretic Peptide 30 Total Protein 6.7 Albumin 3.3 L Urine Color Urine Appearance Urine pH Ur Specific [place] Urine Protein Urine Glucose (UA) Urine Ketones Urine Blood Urine Nitrite Ur Leukocyte Esterase COVID-19 ([facility]) Positive A COVID-19 Clin Com See Note Influenza Type A ([facility]ENE) Negative Influenza Type B (ILENE) Negative Influenza A & B Note See Note 02/13/23 02/13/23 15:12 18:27 MCV MCH MCHC RDW Plt Count MPV Immature Gran % (Auto) Neut % (Auto) Lymph % (Auto) [place] % (Auto) Eos % (Auto) Baso % (Auto) Lymph # (Auto) [place] # (Auto) Eos # (Auto) Baso # (Auto) Abs Immat Gran (auto) Absolute Neuts (auto) Absolute Nucleated RBC Nucleated RBC % (auto) PT INR VBG pH 7.61 H* VBG pCO2 21 VBG pO2 266 VBG HCO3 22 VBG O2 Saturation 100.0 VBG Base Excess 2.8 Anion Gap Estim Creat Clear Calc Estimated GFR Random Glucose Lactic Acid Calcium Total Bilirubin Direct Bilirubin AST ALT Alkaline Phosphatase B-Natriuretic Peptide Total Protein Albumin Urine Color Yellow Urine Appearance Clear Urine pH 8.0 Ur Specific [place] 1.020 Urine Protein Negative Urine Glucose (UA) 100 H Urine Ketones 40 Urine Blood Negative Urine Nitrite Negative Ur Leukocyte Esterase Negative COVID-19 ([facility]) COVID-19 Clin Com Influenza Type A (ILENE) Influenza Type B (ILENE) Influenza A & B Note Imaging Radiologist's Impressions: Impressions Chest X-Ray 02/13/23 15:57 IMPRESSION: Bibasilar increased markings, likely atelectasis, pneumonia not excluded, particularly in the retrocardiac region. Assessment and Plan (1) COVID-19: Status: Acute Plan This is a 62-year-old male with pertinent history of essential hypertension, non insulin-dependent diabetes mellitus, mood disorder who was sent to the emergency department for evaluation of hypoxemia. #. Acute hypoxemic respiratory failure secondary to COVID-19: Will admit patient with supplemental oxygen. Initiating IV Decadron. Monitor oxygen saturation and wean as tolerated. Maintain oxygen saturation greater than 90%. #. Uem-[id number] diabetes mellitus: Initiating Accu-Cheks with sliding scale insulin in the setting of steroid use #. Mood disorder: Continue home mood stabilizers Med rec pending DVT prophylaxis: A[place]sex Admit as inpatient and will require two night minimum hospital stay for supplemental oxygen Time Spent With Patient Time: Total time managing care of this patient today ____ minutes. Quality Stroke Does the patient have a stroke diagnosis?: No VTE Prior VTE?: No VTE Risk Level:: Medical - moderate - high VTE Device Contraindication: Treatment Not Indicated VTE Drug Contraindication: N/A - Med Ordered
[2023-02-13 20:05] LABS: Glucose, Whole Blood 132 mg/dL (60-115)
[2023-02-13] MEDS: Enoxaparin Sodium 40 MG/0.4 ML SYRINGE SUBCUT (20:32)
--- NOTE | 2023-02-13 20:41 | PC.NURSE ---
medicated per provider order.
--- NOTE | 2023-02-13 21:56 | MHC.EDTECH ---
PT HAD NO Belonging
--- NOTE | 2023-02-13 22:49 | PC.NURSE ---
Returned call to ED for report. On hold 5 minutes. Will try back.
[2023-02-13 23:41] VITALS: BP 144/61; PULSE 93; RESP 17; TEMP 37.1; O2SAT 94
[2023-02-13] MEDS: 0.9 % Sodium Chloride Flush 3 ML SYRINGE IVFLUSH (23:57)
[2023-02-14] VITALS (18 sets, daily range): BP systolic 100–210; BP diastolic 55–95; PULSE 55–137; RESP 14–20; TEMP 35.2–36.8; O2SAT 70–98
[2023-02-14 01:49] LABS: Glucose, Whole Blood 163 mg/dL (60-115)
--- NOTE | 2023-02-14 03:26 | HO.SKINPHOTO ---
Location:coccyx Category:pressure Stage:II Length: 1.5 2.5 Width: Depth: cm Location: Category: Stage: Length: Width: Depth: cm Location: Category: Stage: Length: Width: Depth: cm Location: Category: Stage: Length: Width: Depth: cm Location: Category: Stage: Length: Width: Depth: cm Location: Category: Stage: Length: Width: Depth: cm
[2023-02-14 06:02] LABS: MANUAL DIFF FLAG NO
[2023-02-14 06:13] LABS: Basophils Percent Auto 0.3 % (0-2); Hematocrit 35.3 % (42.0-52.0); Hemoglobin 11.4 g/dl (14.0-18.0); Imm Gran Abs Auto 0.08 X10*3/uL (0.00-0.03); Imm Gran Pct Auto 0.8 % (0.0-0.4); Lymphocytes Absolute Auto 1.1 X10*3/uL (1.2-4.9); Mean Corpuscular HGB Conc 32.3 g/dl (31.0-36.0); Mean Corpuscular Hemoglobin 30.4 pg (27.0-33.0); Mean Corpuscular Volume 94.1 fL (80.0-98.0); Mean Platelet Volume 10.8 fL (9.4-12.4); Monocytes Absolute Auto 0.6 X10*3/uL (0.1-1.2); Monocytes Percent Auto 6.1 % (2-11); Neutrophils Absolute Auto 7.8 x10*3/uL (2.0-8.3); Neutrophils Percent Auto 81.8 % (45-73); Platelet Count 302 X10*3/uL (160-400); Red Blood Count 3.75 X10*6/uL (4.60-5.80); Red Cell Distribution Width 13.2 % (11.0-16.0); White Blood Count 9.5 X10*3/uL (4.8-10.8)
[2023-02-14 06:27] LABS: Anion Gap 11 (12-20); Blood Urea Nitrogen 14 mg/dL (9-16); Calcium 9.2 mg/dL (8.4-10.2); Carbon Dioxide 24 mmol/L (22-29); Chloride 109 mmol/L (96-108); Estimated Glomerular Filt Rate > 60; Glucose Random 165 mg/dL (60-115); Potassium 5.1 mmol/L (3.3-5.1); Sodium 139 mmol/L (135-145)
[2023-02-14 07:31] LABS: Glucose, Whole Blood 141 mg/dL (60-115)
--- NOTE | 2023-02-14 08:24 | PHA.MEDREC ---
Addendum entered by Harika Joel [facility] 02/14/23 09:11: Called [facility] to verify last Invega injection, stated last dose was 01/11/23 and he was due 02/08/23 but was not there to receive it Original Note: Pharmacy Consult ? Medication Reconciliation Pharmacy has completed the medication reconciliation.
[2023-02-14 10:02] LABS: Procalcitonin 0.03 ng/mL
[2023-02-14] MEDS: dexAMETHasone sod phosphate 4 MG/ML VIAL 6 MG IVPUSH (10:49)
[2023-02-14] MEDS: 0.9 % Sodium Chloride Flush 3 ML SYRINGE IVFLUSH ×2 (10:49→21:01)
--- NOTE | 2023-02-14 12:18 | MHC.SL.SWA ---
Speech Pathologist Impression: Risk of Aspiration Due to: Lethargy Medically Fragile Neurological Condition History of Pneumonia Poor PO Intake Reduced Cognition Weak Cough Weak Voice Dysphasia Diet Status: Liquid Consistency and Strategies for Safe Swallow: Liquid Intake Recommendation: Clever Thick Liquid Intake Strategies: Small Sips Solid Food Consistency: Dietary Recommendations: Pureed (NDD1) Additional Modifications to Solid Foods: Oral Medication Intake: Crushed with Puree Please contact the pharmacy regarding appropriate crushable or liquid drug formulations that are available whenever modified delivery is recommended. Compensatory Strategies and Precautions to be Taken for Safe Swallow: Sitting Upright (90 deg) Small Bites and Sips Alternate Liquids/Solids Rate of Ingestion Change Supervision While Eating and Drinking for Safe Swallow: Total Assistance (1:1) Swallowing Recommended Treatments: Compens. Strategy Educat. Recommendation for Speech: Inpatient Speech Therapy Comment: Recommending intiate diet of Puree Solids (NDD1) with Clever-Thick Liquids. Medications Crushed with Puree. Pt will require 1:1 assistance. Ensure aspiration precautions with all PO meals and medications. Frequency/Duration: Date Range for Service Req: Timeline to reassess: PRN Miniature Train Driver Clinican/Clinical Fellow: No Supervisory Statement: I have reviewed and agree with the student/clinical fellow's documentation: N/A Speech Language Pathologist: Jayson Yi M.A., CCC-AIR OPERATIONS MANAGER
[2023-02-14 12:20] LABS: Glucose, Whole Blood 161 mg/dL (60-115)
--- NOTE | 2023-02-14 12:30 | MHC.CM.PN ---
Addendum entered by Bharati Conte 02/14/23 13:31: Third call placed to kaylin Edmond, and message left and notice of IMM given 02/14, copy placed in chart. Original Note: This CM has called and left a voicemail x 2 for kaylin Barahona at [phone]. Pt is non-verbal at baseline with dx: dementia. From chart review, pt noted to have come from [facility] in [place], return referral placed. HCP/MOLST on file. PCP: Dr. Kishan Killian
--- NOTE | 2023-02-14 13:02 | PC.NURSE ---
Addendum entered by Megan Craig RN 02/14/23 14:13: Orders to transfer patient to ICU. CXR and VBG's done. Sat currently 97% on highflow and NRB. Report given to Bianca ARANGO in ICU. Original Note: o2 sat 70% on 3L @ 1200. Patient put on NRb and respiratory and Dr. Boswell notified. Sats 77-79% on NRB. Respiratory and Dr. Boswell in to see patient. High flow started at 50L, 88%. ABG attempted. VBG's orderederd. CXR ordered. Sats 90-92% presently on high flow and NRB. Dr. Boswell attempting to contact guardian.
--- NOTE | 2023-02-14 13:05 | P.PNIM_ITS ---
Subjective Subjective Date of Service: 02/14/23 Interval History: Acute hypoxemic respiratory failure secondary to COVID. Review of Systems called care home: Patient was sent because he was not responding , his sats were also low in 80s as per care home and that is why patient was sent to the hospital. This morning patient is awake, responds to his name, but unable to provide much information. Patient was slowly becoming hypoxic in the range of 70-80s even tried high flow, otherwise still awake. As per chart review -no fevers ,otherwise not looking uncomfortable ,yells intermitently to staff Physical Exam 2 Vital Signs: Vital Signs: Last Vital Signs Temp 96.8 F 02/14/23 07:20 Pulse 79 02/14/23 07:20 Resp 18 02/14/23 07:20 BP 165/76 H 02/14/23 07:20 Pulse Ox 97 02/14/23 07:20 O2 Del Method Nasal Cannula 02/14/23 07:20 O2 Flow Rate 4 02/14/23 07:20 Oxygen Flow Rate 15 02/13/23 14:07 BMI result Body Mass Index 19.7 Appearance: awake but unable to answer many questions cvs: [id number], [id number] . res: air entry diminshed ,few scattered rhonchii abd: no rebound or guarding ,nt, bs present. ext pulses present , no cyanosis. neuro: axo3 , nonfocal. Objective Data Active Medications Acetaminophen (Acetaminophen 325 Mg Tablet) 650 mg PO Q6H PRN PRN Reason: Pain, Mild (Pain Scale 1-3) Acetaminophen (Acetaminophen Supp 650 Mg Supp.Rect) 650 mg FL Q6H PRN PRN Reason: Pain, Mild (Pain Scale 1-3) Benztropine Mesylate (Benztropine Mesylate 1 Mg Tablet) 1 mg PO BID [facility] Last Admin: 02/14/23 10:56 Dose: Not Given Documented By: JORGE Non-Admin Reason: NPO Dexamethasone Sodium Phosphate (Dexamethasone Sod Phosphate 4 Mg/Ml Vial) 6 mg IVPUSH DAILY [facility] Last Admin: 02/14/23 10:49 Dose: 6 mg Documented By: JORGE Dextrose (Dextrose 50 % 25 Gm/50 Ml Syringe) 25 gm IVPUSH Q15M PRN; Protocol PRN Reason: per Hypoglycemia Standing Ord. Dextrose (Dextrose 50 % 25 Gm/50 Ml Syringe) 25 gm IVPUSH Q15M PRN; Protocol PRN Reason: per Hypoglycemia Standing Ord. Divalproex Sodium (Divalproex Sodium 250 Mg Tablet.) 250 mg PO DAILY [facility] Last Admin: 02/14/23 12:06 Dose: 250 mg Documented By: JORGE Divalproex Sodium (Divalproex Sodium 500 Mg Tablet.) 1,000 mg PO BID [facility] Last Admin: 02/14/23 10:56 Dose: Not Given Documented By: JORGE Non-Admin Reason: NPO Enoxaparin Sodium (Enoxaparin Sodium 40 Mg/0.4 Ml Syringe) 40 mg SUBCUT Q24H [facility] Last Admin: 02/13/23 20:32 Dose: 40 mg Documented By: CHRISTOPH Famotidine (Famotidine 20 Mg Tablet) 20 mg PO BID [facility] Last Admin: 02/14/23 10:56 Dose: Not Given Documented By: JORGE Non-Admin Reason: NPO Glucose (Glucose Gel 15 Gm Gel..Gram.) 15 gm PO Q15M PRN; Protocol PRN Reason: per Hypoglycemia Standing Ord. Glucose (Glucose Gel 15 Gm Gel..Gram.) 15 gm PO Q15M PRN; Protocol PRN Reason: per Hypoglycemia Standing Ord. Insulin Human Lispro (Insulin Lispro 100 Unit/Ml 3 Ml Vial) 0 unit SUBCUT QIDACHS [facility]; Protocol Last Admin: 02/14/23 10:28 Dose: Not Given Documented By: JORGE Non-Admin Reason: No Insulin Coverage Losartan Potassium (Losartan Potassium 25 Mg Tablet) 25 mg PO DAILY [facility]; Protocol Last Admin: 02/14/23 12:06 Dose: 25 mg Documented By: JORGE Melatonin (Melatonin 3 Mg Tablet) 6 mg PO BEDTIME PRN PRN Reason: Insomnia Olanzapine (Olanzapine 7.5 Mg Tablet) 15 mg PO BEDTIME [facility] Olanzapine (Olanzapine 10 Mg Tablet) 20 mg PO BEDTIME [facility] Ondansetron HCl (Ondansetron Hcl 4 Mg/2 Ml Vial) 4 mg IVPUSH Q8H PRN PRN Reason: Nausea and Vomiting Paliperidone (Paliperidone Er 9 Mg Tab.Er.24) 9 mg PO DAILY [facility] Paliperidone Palmitate (Paliperidone Palmitate 234 Mg/1.5 Ml Syringe) 234 mg IM Q28D [facility] Sodium Chloride (0.9 % Sodium Chloride Flush 3 Ml Syringe) 3 ml IVFLUSH QSHIFT [facility] Last Admin: 02/14/23 10:49 Dose: 3 ml Documented By: JORGE Labs 02/14/23 05:50 02/14/23 05:50 Labs: Laboratory Results - last 24 hr 02/13/23 02/13/23 02/13/23 14:52 15:03 15:05 MCV 91.2 MCH 30.2 MCHC 33.2 RDW 13.2 Plt Count 284 D MPV 10.7 Immature Gran % (Auto) 2.0 H Neut % (Auto) 57.5 Lymph % (Auto) 27.1 [place] % (Auto) 12.9 H Eos % (Auto) 0.3 Baso % (Auto) 0.2 Lymph # (Auto) 1.8 [place] # (Auto) 0.9 Eos # (Auto) 0.0 Baso # (Auto) 0.0 Abs Immat Gran (auto) 0.13 H Absolute Neuts (auto) 3.8 Absolute Nucleated RBC 0.000 Nucleated RBC % (auto) 0.0 PT 12.9 INR 1.1 VBG pH VBG pCO2 VBG pO2 VBG HCO3 VBG O2 Saturation VBG Base Excess Anion Gap 13 Estim Creat Clear Calc 122.0 Estimated GFR > 60 POC Glucose Random Glucose 164 H Lactic Acid 0.8 Calcium 9.5 Total Bilirubin 0.4 Direct Bilirubin 0.2 AST 29 ALT 18 Alkaline Phosphatase 54 B-Natriuretic Peptide 30 Total Protein 6.7 Albumin 3.3 L Procalcitonin Urine Color Urine Appearance Urine pH Ur Specific [place] Urine Protein Urine Glucose (UA) Urine Ketones Urine Blood Urine Nitrite Ur Leukocyte Esterase COVID-19 (SARMAD) Positive A COVID-19 Clin Com See Note Influenza Type A (ILENE) Negative Influenza Type B (ILENE) Negative Influenza A & B Note See Note 02/13/23 02/13/23 02/13/23 15:12 18:27 19:28 MCV MCH MCHC RDW Plt Count MPV Immature Gran % (Auto) Neut % (Auto) Lymph % (Auto) [place] % (Auto) Eos % (Auto) Baso % (Auto) Lymph # (Auto) [place] # (Auto) Eos # (Auto) Baso # (Auto) Abs Immat Gran (auto) Absolute Neuts (auto) Absolute Nucleated RBC Nucleated RBC % (auto) PT INR VBG pH 7.61 H* VBG pCO2 21 VBG pO2 266 VBG HCO3 22 VBG O2 Saturation 100.0 VBG Base Excess 2.8 Anion Gap Estim Creat Clear Calc Estimated GFR POC Glucose 132 H Random Glucose Lactic Acid Calcium Total Bilirubin Direct Bilirubin AST ALT Alkaline Phosphatase B-Natriuretic Peptide Total Protein Albumin Procalcitonin Urine Color Yellow Urine Appearance Clear Urine pH 8.0 Ur Specific [place] 1.020 Urine Protein Negative Urine Glucose (UA) 100 H Urine Ketones 40 Urine Blood Negative Urine Nitrite Negative Ur Leukocyte Esterase Negative COVID-19 (SARMAD) COVID-19 Clin Com Influenza Type A (ILENE) Influenza Type B (ILENE) Influenza A & B Note 02/14/23 02/14/23 02/14/23 01:09 05:50 07:25 MCV 94.1 MCH 30.4 MCHC 32.3 RDW 13.2 Plt Count 302 MPV 10.8 Immature Gran % (Auto) 0.8 H Neut % (Auto) 81.8 H Lymph % (Auto) 11.0 L [place] % (Auto) 6.1 Eos % (Auto) 0.0 Baso % (Auto) 0.3 Lymph # (Auto) 1.1 L [place] # (Auto) 0.6 Eos # (Auto) 0.0 Baso # (Auto) 0.0 Abs Immat Gran (auto) 0.08 H Absolute Neuts (auto) 7.8 Absolute Nucleated RBC 0.000 Nucleated RBC % (auto) 0.0 PT INR VBG pH VBG pCO2 VBG pO2 VBG HCO3 VBG O2 Saturation VBG Base Excess Anion Gap 11 L Estim Creat Clear Calc 107.0 Estimated GFR > 60 POC Glucose 163 H 141 H Random Glucose 165 H Lactic Acid Calcium 9.2 Total Bilirubin Direct Bilirubin AST ALT Alkaline Phosphatase B-Natriuretic Peptide Total Protein Albumin Procalcitonin 0.03 Urine Color Urine Appearance Urine pH Ur Specific [place] Urine Protein Urine Glucose (UA) Urine Ketones Urine Blood Urine Nitrite Ur Leukocyte Esterase COVID-19 ([facility]ARMAD) COVID-19 Clin Com Influenza Type A (ILENE) Influenza Type B (ILENE) Influenza A & B Note 02/14/23 12:10 MCV MCH MCHC RDW Plt Count MPV Immature Gran % (Auto) Neut % (Auto) Lymph % (Auto) [place] % (Auto) Eos % (Auto) Baso % (Auto) Lymph # (Auto) [place] # (Auto) Eos # (Auto) Baso # (Auto) Abs Immat Gran (auto) Absolute Neuts (auto) Absolute Nucleated RBC Nucleated RBC % (auto) PT INR VBG pH VBG pCO2 VBG pO2 VBG HCO3 VBG O2 Saturation VBG Base Excess Anion Gap Estim Creat Clear Calc Estimated GFR POC Glucose 161 H Random Glucose Lactic Acid Calcium Total Bilirubin Direct Bilirubin AST ALT Alkaline Phosphatase B-Natriuretic Peptide Total Protein Albumin Procalcitonin Urine Color Urine Appearance Urine pH Ur Specific [place] Urine Protein Urine Glucose (UA) Urine Ketones Urine Blood Urine Nitrite Ur Leukocyte Esterase COVID-19 ([facility]ARMAD) COVID-19 Clin Com Influenza Type A (ILENE) Influenza Type B (ILENE) Influenza A & B Note Assessment and Plan (1) Pneumonia: Status: Acute (2) COVID-19: Status: Acute Plan 62-year-old male with pertinent history of essential hypertension, non insulin- dependent diabetes mellitus, mood disorder who was sent to the emergency department for evaluation of hypoxemia. Acute hypoxemic respiratory failure secondary to COVID-19: continue supplemental oxygen, Initiating IV Decadron, added cxr , procalcitonin leevls ,vbg , sats are still in 70-80% evenwith high flow . id eval [id number] diabetes mellitus: Initiating Accu-Cheks with sliding scale insulin in the setting of steroid use Mood disorder: Continue home mood stabilizers ? neck spasm : added neck xray DVT prophylaxis: Lovenox Due to worsening hypoxemic respiratory failure sec to covid -not improving on high flow -will need icu levels of care for sening hypoxemic respiratory failure sec to covid ,patient is full code as per care home . called guardian Feli Shane -unable to reach . above is D/w icu indetail. Time Spent With Patient Time: Total time managing care of this patient today ____ minutes. Quality Stroke Does the patient have a stroke diagnosis?: No VTE Prior VTE?: No VTE Risk Level:: Medical - moderate - high VTE Device Contraindication: Treatment Not Indicated VTE Drug Contraindication: N/A - Med Ordered
--- NOTE | 2023-02-14 13:14 | PM.CCPN ---
Subjective Subjective Date of Service: 02/14/23 Interval History: hypoxia, necessitating HFNC 50L 50% Critical Care Time (minutes): 120 Physical Exam Vital Signs: Vital Signs: Last Vital Signs Temp 96.8 F 02/14/23 07:20 Pulse 79 02/14/23 07:20 Resp 18 02/14/23 07:20 BP 165/76 H 02/14/23 07:20 Pulse Ox 97 02/14/23 07:20 O2 Del Method Nasal Cannula 02/14/23 07:20 O2 Flow Rate 4 02/14/23 07:20 Oxygen Flow Rate 15 02/13/23 14:07 BMI result Body Mass Index 19.7 Const: General: no acute distress HEENT: Head: Yes normal to inspection, Yes normocephalic and Yes atraumatic Eyes: General: appearance normal, both eyes and all related structures Neck: Neck: Yes normal visual inspection and Yes supple Chest: Chest palpation & inspection: normal inspection of the chest Resp: Other: appreciable rales, rhonchi throughout; no wheezing Cardio: Rate: regular rate Rhythm: regular rhythm GI: Inspection: Yes normal to inspection, No Abdominal wall edema and No distended Palpation (GI): Soft to palpation, not firm, nontender, no guarding and not rigid : Male General Exam: Yes normal external exam Skin: General skin exam: no rashes or lesions noted Neuro: Other: intubated, sedated Extrem: General: Yes no clubbing, cyanosis or edema Objective Data Labs 02/14/23 13:19 02/14/23 13:19 Labs: Laboratory Results - last 24 hr 02/13/23 02/13/23 02/13/23 14:52 15:03 15:05 WBC 6.6 RBC 4.20 L Hgb 12.7 L Hct 38.3 L MCV 91.2 MCH 30.2 MCHC 33.2 RDW 13.2 Plt Count 284 D MPV 10.7 Immature Gran % (Auto) 2.0 H Neut % (Auto) 57.5 Lymph % (Auto) 27.1 [place] % (Auto) 12.9 H Eos % (Auto) 0.3 Baso % (Auto) 0.2 Lymph # (Auto) 1.8 [place] # (Auto) 0.9 Eos # (Auto) 0.0 Baso # (Auto) 0.0 Abs Immat Gran (auto) 0.13 H Absolute Neuts (auto) 3.8 Absolute Nucleated RBC 0.000 Nucleated RBC % (auto) 0.0 PT 12.9 INR 1.1 VBG pH VBG pCO2 VBG pO2 VBG HCO3 VBG O2 Saturation VBG Base Excess Sodium 139 Potassium 4.0 Chloride 108 Carbon Dioxide 22 Anion Gap 13 BUN 14 Creatinine 0.57 Estim Creat Clear Calc 122.0 Estimated GFR > 60 POC Glucose Random Glucose 164 H Lactic Acid 0.8 Calcium 9.5 Total Bilirubin 0.4 Direct Bilirubin 0.2 AST 29 ALT 18 Alkaline Phosphatase 54 Troponin I High Sens 10.3 B-Natriuretic Peptide 30 Total Protein 6.7 Albumin 3.3 L Procalcitonin Urine Color Urine Appearance Urine pH Ur Specific [place] Urine Protein Urine Glucose (UA) Urine Ketones Urine Blood Urine Nitrite Ur Leukocyte Esterase COVID-19 ([facility]) Positive A COVID-19 Clin Com See Note Influenza Type A (ILENE) Negative Influenza Type B (ILENE) Negative Influenza A & B Note See Note 02/13/23 02/13/23 02/13/23 15:12 18:27 19:28 WBC RBC Hgb Hct MCV MCH MCHC RDW Plt Count MPV Immature Gran % (Auto) Neut % (Auto) Lymph % (Auto) [place] % (Auto) Eos % (Auto) Baso % (Auto) Lymph # (Auto) [place] # (Auto) Eos # (Auto) Baso # (Auto) Abs Immat Gran (auto) Absolute Neuts (auto) Absolute Nucleated RBC Nucleated RBC % (auto) PT INR VBG pH 7.61 H* VBG pCO2 21 VBG pO2 266 VBG HCO3 22 VBG O2 Saturation 100.0 VBG Base Excess 2.8 Sodium Potassium Chloride Carbon Dioxide Anion Gap BUN Creatinine Estim Creat Clear Calc Estimated GFR POC Glucose 132 H Random Glucose Lactic Acid Calcium Total Bilirubin Direct Bilirubin AST ALT Alkaline Phosphatase Troponin I High Sens B-Natriuretic Peptide Total Protein Albumin Procalcitonin Urine Color Yellow Urine Appearance Clear Urine pH 8.0 Ur Specific [place] 1.020 Urine Protein Negative Urine Glucose (UA) 100 H Urine Ketones 40 Urine Blood Negative Urine Nitrite Negative Ur Leukocyte Esterase Negative COVID-19 ([facility]) COVID-19 Clin Com Influenza Type A (ILENE) Influenza Type B (ILENE) Influenza A & B Note 02/14/23 02/14/23 02/14/23 01:09 05:50 07:25 WBC 9.5 RBC 3.75 L Hgb 11.4 L Hct 35.3 L MCV 94.1 MCH 30.4 MCHC 32.3 RDW 13.2 Plt Count 302 MPV 10.8 Immature Gran % (Auto) 0.8 H Neut % (Auto) 81.8 H Lymph % (Auto) 11.0 L [place] % (Auto) 6.1 Eos % (Auto) 0.0 Baso % (Auto) 0.3 Lymph # (Auto) 1.1 L [place] # (Auto) 0.6 Eos # (Auto) 0.0 Baso # (Auto) 0.0 Abs Immat Gran (auto) 0.08 H Absolute Neuts (auto) 7.8 Absolute Nucleated RBC 0.000 Nucleated RBC % (auto) 0.0 PT INR VBG pH VBG pCO2 VBG pO2 VBG HCO3 VBG O2 Saturation VBG Base Excess Sodium 139 Potassium 5.1 D Chloride 109 H Carbon Dioxide 24 Anion Gap 11 L BUN 14 Creatinine 0.65 Estim Creat Clear Calc 107.0 Estimated GFR > 60 POC Glucose 163 H 141 H Random Glucose 165 H Lactic Acid Calcium 9.2 Total Bilirubin Direct Bilirubin AST ALT Alkaline Phosphatase Troponin I High Sens B-Natriuretic Peptide Total Protein Albumin Procalcitonin 0.03 Urine Color Urine Appearance Urine pH Ur Specific [place] Urine Protein Urine Glucose (UA) Urine Ketones Urine Blood Urine Nitrite Ur Leukocyte Esterase COVID-19 ([facility]) COVID-19 Clin Com Influenza Type A (ILENE) Influenza Type B (ILENE) Influenza A & B Note 02/14/23 12:10 WBC RBC Hgb Hct MCV MCH MCHC RDW Plt Count MPV Immature Gran % (Auto) Neut % (Auto) Lymph % (Auto) [place] % (Auto) Eos % (Auto) Baso % (Auto) Lymph # (Auto) [place] # (Auto) Eos # (Auto) Baso # (Auto) Abs Immat Gran (auto) Absolute Neuts (auto) Absolute Nucleated RBC Nucleated RBC % (auto) PT INR VBG pH VBG pCO2 VBG pO2 VBG HCO3 VBG O2 Saturation VBG Base Excess Sodium Potassium Chloride Carbon Dioxide Anion Gap BUN Creatinine Estim Creat Clear Calc Estimated GFR POC Glucose 161 H Random Glucose Lactic Acid Calcium Total Bilirubin Direct Bilirubin AST ALT Alkaline Phosphatase Troponin I High Sens B-Natriuretic Peptide Total Protein Albumin Procalcitonin Urine Color Urine Appearance Urine pH Ur Specific [place] Urine Protein Urine Glucose (UA) Urine Ketones Urine Blood Urine Nitrite Ur Leukocyte Esterase COVID-19 ([facility]) COVID-19 Clin Com Influenza Type A (ILENE) Influenza Type B (ILENE) Influenza A & B Note Progress Note: A&P Assessment and plan (1) Pneumonia due to COVID-19 virus: Status: Acute Plan 62 Y M, baseline non-verbal, COPD, resides at [facility], found to be tachypneic, hypoxic, found to be COVID positive N: reportedly baseline non-verbal; intubated, sedated w/ propofol gtt; to wean as tolerated CV: hemodynamically stable; continue to monitor R: COVID pneumonia, hypoxic on maximum HFNC, now intubated; dexamethasone, remdesivir GI: no acute issues; NPO, to place OG tube : no acute issues H: no acute issues ID: COVID as described above; of note, procalcitonin negative, lower suspicion for bacterial superinfection E: no acute issues Quality Stroke Does the patient have a stroke diagnosis?: No VTE Prior VTE?: No VTE Risk Level:: Medical - moderate - high VTE Device Contraindication: Treatment Not Indicated VTE Drug Contraindication: N/A - Med Ordered
[2023-02-14 13:25] LABS: MANUAL DIFF FLAG NO
[2023-02-14 13:34] LABS: VBG Base Excess -0.6 mmol/L; VBG HCO3 23 mmol/L (22-26); VBG pCO2 36 mmHg; VBG pH 7.41 (7.32-7.43); VBG pO2 45 mmHg
[2023-02-14 13:34] LABS: Venous Blood Gas Refer to POC result
[2023-02-14 13:39] LABS: Basophils Percent Auto 0.2 % (0-2); Imm Gran Abs Auto 0.08 X10*3/uL (0.00-0.03); Imm Gran Pct Auto 0.8 % (0.0-0.4); Mean Corpuscular HGB Conc 32.5 g/dl (31.0-36.0); Mean Corpuscular Hemoglobin 30.4 pg (27.0-33.0); Mean Corpuscular Volume 93.5 fL (80.0-98.0); Mean Platelet Volume 10.6 fL (9.4-12.4); Monocytes Absolute Auto 0.5 X10*3/uL (0.1-1.2); Monocytes Percent Auto 4.9 % (2-11); Neutrophils Absolute Auto 8.1 x10*3/uL (2.0-8.3); Neutrophils Percent Auto 84.1 % (45-73); Platelet Count 312 X10*3/uL (160-400); Red Blood Count 4.28 X10*6/uL (4.60-5.80); Red Cell Distribution Width 13.2 % (11.0-16.0); White Blood Count 9.6 X10*3/uL (4.8-10.8)
[2023-02-14 13:42] LABS: Partial Thromboplastin Time 35.8 SEC (26.0-36.4)
[2023-02-14 13:55] LABS: Alanine Aminotransferase 16 U/L (0-40); Albumin Level 3.3 g/dL (3.5-5.0); Alkaline Phosphatase 53 U/L (39-117); Anion Gap 16 (12-20); Aspartate Amino Transferase 16 U/L (5-37); Bilirubin Direct 0.2 mg/dL (0.0-0.5); Bilirubin Total 0.4 mg/dL (0.0-1.0); Blood Urea Nitrogen 16 mg/dL (9-16); Carbon Dioxide 22 mmol/L (22-29); Chloride 107 mmol/L (96-108); Creatinine Clr Calc Pharmacy 100.8; Estimated Glomerular Filt Rate > 60; Glucose Random 182 mg/dL (60-115); Sodium 140 mmol/L (135-145); Total Protein 6.9 g/dL (6.5-8.0)
[2023-02-14] MEDS: Etomidate 20 MG/10 ML VIAL 10 MG IVPUSH (14:15)
[2023-02-14] MEDS: Rocuronium Bromide 50 MG/5 ML VIAL 100 MG IVPUSH (14:16)
[2023-02-14] MEDS: propofoL 1,000 MG/100 ML VIAL 11.86 MG IVCONT (14:20)
--- NOTE | 2023-02-14 14:39 | W.PM.CCHP ---
Procedures Date of Service Date of Service: 02/14/23 Intubation Consent for Procedure: Emergent-no informed consent obtained Time out performed: Yes Sedative: etomidate Mg given: 20 Paralytic: rocuronium Mg given: 100 Laryngoscope: Ele ET tube size: 7.5 ET tube uncuffed: Yes Tube secured depth (cm): 20 Tube secured location: lips Tube placement confirmation: visualized tube passing through cords, equal breath sounds bilaterally and confirmation by capnometry Patient tolerated procedure: well Intubation complications: none
[2023-02-14 15:08] LABS: VBG Base Excess -5.2 mmol/L; VBG HCO3 18 mmol/L (22-26); VBG pCO2 31 mmHg; VBG pH 7.37 (7.32-7.43); VBG pO2 71 mmHg
[2023-02-14 15:17] LABS: Lactic Acid 1.5 mmol/L (0.5-2.0)
[2023-02-14] MEDS: Remdesivir 200 MG in 0.9 % Sodium Chloride 210 ML 105 MG IV (15:23)
--- NOTE | 2023-02-14 15:37 | W.PM.CCHP ---
Procedures Date of Service Date of Service: 02/14/23 Bronchoscopy Consent for Procedure: Emergent-no informed consent obtained Indication: other (c/f mucus plugging) Procedure: Route: endotracheal tube Monitor: pulse oximetry Findings: both R and L airway was appreciated to the level of the secondary bronchi; copious secretions appreciated at the level of the main bronchus and all secondary bronchi; secretions were aspirated; otherwise no appreciable bleeding, friable mucosa, or masses
[2023-02-14 17:29] LABS: Glucose, Whole Blood 194 mg/dL (60-115)
[2023-02-14] MEDS: Insulin Lispro 100 UNIT/ML 3 ML VIAL SUBCUT (18:16)
[2023-02-14] MEDS: fentaNYL citrate/NS 1,000 MCG/100 ML PLAST..BAG 2.5 MCG IVCONT (18:19)
[2023-02-14] MEDS: propofoL 1,000 MG/100 ML VIAL 19.77 MG IVCONT ×2 (18:49→22:59)
[2023-02-14] MEDS: Enoxaparin Sodium 40 MG/0.4 ML SYRINGE SUBCUT (21:00)
[2023-02-14] MEDS: Famotidine 20 MG TABLET PO (21:00)
[2023-02-14] MEDS: Divalproex Sodium Sprinkles 125 MG CAP.DR.SPR 1000 MG PO (21:00)
[2023-02-14] MEDS: OLANZapine 10 MG TABLET 20 MG PO (21:01)
[2023-02-14] MEDS: Benztropine Mesylate 1 MG TABLET PO (21:01)
--- NOTE | 2023-02-14 22:30 | HO.SKINPHOTO ---
Location: Left lateral foot Category: Pressure Stage:1 Length: Width: Depth: cm Location: Right heel Category: Pressure Stage: 1 Length: Width: Depth: cm Location: Left Heel Category: Pressure Stage: 1 Length: Width: Depth: cm
[2023-02-14] MEDS: Dextrose 5 % and Lactated Ring 1,000 ML 80 ML IVCONT (22:59)
[2023-02-15] VITALS (38 sets, daily range): BP systolic 89–151; BP diastolic 50–68; PULSE 48–79; RESP 11–16; TEMP 34.7–37.2; O2SAT 90–97; BMI 20.7
[2023-02-15 00:09] LABS: Glucose, Whole Blood 152 mg/dL (60-115)
[2023-02-15] MEDS: Insulin Lispro 100 UNIT/ML 3 ML VIAL SUBCUT ×5 (00:10→23:27)
[2023-02-15] MEDS: iohexoL 350 MG/ML 100 ML INFUS..BTL IV (02:29)
[2023-02-15] MEDS: propofoL 1,000 MG/100 ML VIAL 15.82 MG IVCONT (03:11)
[2023-02-15 04:41] LABS: Venous Blood Gas Refer to POC result
[2023-02-15 05:33] LABS: VBG Base Excess 6.2 mmol/L; VBG HCO3 26 mmol/L (22-26); VBG pCO2 26 mmHg; VBG pH 7.61 (7.32-7.43); VBG pO2 79 mmHg
[2023-02-15 05:34] LABS: Venous Blood Gas Refer to POC result
[2023-02-15 05:35] LABS: Glucose, Whole Blood 157 mg/dL (60-115)
[2023-02-15 05:44] LABS: MANUAL DIFF FLAG NO
[2023-02-15 05:51] LABS: Basophils Percent Auto 0.2 % (0-2); Eosinophils Percent Auto 0.1 % (0-4); Hematocrit 32.9 % (42.0-52.0); Imm Gran Abs Auto 0.11 X10*3/uL (0.00-0.03); Imm Gran Pct Auto 0.9 % (0.0-0.4); Lymphocytes Absolute Auto 2.8 X10*3/uL (1.2-4.9); Lymphocytes Percent Auto 22.6 % (20-40); Mean Corpuscular HGB Conc 33.4 g/dl (31.0-36.0); Mean Corpuscular Hemoglobin 30.5 pg (27.0-33.0); Mean Corpuscular Volume 91.1 fL (80.0-98.0); Mean Platelet Volume 11.7 fL (9.4-12.4); Monocytes Percent Auto 7.8 % (2-11); Neutrophils Absolute Auto 8.5 x10*3/uL (2.0-8.3); Neutrophils Percent Auto 68.4 % (45-73); Platelet Count 227 X10*3/uL (160-400); Red Blood Count 3.61 X10*6/uL (4.60-5.80); Red Cell Distribution Width 13.2 % (11.0-16.0); White Blood Count 12.4 X10*3/uL (4.8-10.8)
[2023-02-15 06:04] LABS: Alanine Aminotransferase 11 U/L (0-40); Albumin Level 2.6 g/dL (3.5-5.0); Alkaline Phosphatase 46 U/L (39-117); Anion Gap 12 (12-20); Aspartate Amino Transferase 11 U/L (5-37); Bilirubin Direct 0.1 mg/dL (0.0-0.5); Bilirubin Total 0.3 mg/dL (0.0-1.0); Blood Urea Nitrogen 19 mg/dL (9-16); Carbon Dioxide 20 mmol/L (22-29); Chloride 113 mmol/L (96-108); Creatinine Clr Calc Pharmacy 117.8; Estimated Glomerular Filt Rate > 60; Glucose Random 153 mg/dL (60-115); Potassium 4.1 mmol/L (3.3-5.1); Sodium 141 mmol/L (135-145); Total Protein 5.6 g/dL (6.5-8.0)
[2023-02-15 07:31] LABS: Partial Thromboplastin Time 30.1 SEC (26.0-36.4)
--- NOTE | 2023-02-15 07:47 | P.PNCC_ITS ---
Subjective Subjective Date of Service: 02/15/23 Interval History: some improvement of hypoxia Critical Care Time (minutes): 90 Physical Exam 2 Vital Signs: Vital Signs: Last Vital Signs Temp 97.2 F 02/15/23 07:00 Pulse 53 02/15/23 07:00 Resp 12 02/15/23 07:00 BP 89/51 L 02/15/23 07:00 Pulse Ox 93 02/15/23 07:00 O2 Del Method Mechanical Ventil ation 02/15/23 07:00 O2 Flow Rate 4 02/14/23 12:00 FiO2 80 02/15/23 07:00 Oxygen Flow Rate 15 02/13/23 14:07 BMI result Body Mass Index 20.7 Const: Other: intubated, sedated HEENT: Head: Yes normal to inspection, Yes normocephalic and Yes atraumatic Eyes: General: appearance normal, both eyes and all related structures Neck: Neck: Yes normal visual inspection and Yes supple Chest: Chest palpation & inspection: normal inspection of the chest Resp: Effort & Inspection: normal respiratory effort Cardio: Rate: regular rate Rhythm: regular rhythm GI: Inspection: Yes normal to inspection, No Abdominal wall edema and No distended Palpation (GI): Soft to palpation, not firm, nontender, no guarding and not rigid : Male General Exam: Yes normal external exam Skin: General skin exam: no rashes or lesions noted Neuro: Other: intubated, sedated, unable to follow commands; no overt focal neurological deficit Extrem: General: Yes normal to inspection, Yes capillary refill normal and Yes no clubbing, cyanosis or edema Objective Data Labs 02/15/23 05:27 02/15/23 05:27 Labs: Laboratory Results - last 24 hr 02/14/23 02/14/23 02/14/23 05:50 12:10 13:19 WBC 9.6 RBC 4.28 L Hgb 13.0 L Hct 40.0 L MCV 93.5 MCH 30.4 MCHC 32.5 RDW 13.2 Plt Count 312 MPV 10.6 Immature Gran % (Auto) 0.8 H Neut % (Auto) 84.1 H Lymph % (Auto) 10.0 L [place] % (Auto) 4.9 Eos % (Auto) 0.0 Baso % (Auto) 0.2 Lymph # (Auto) 1.0 L [place] # (Auto) 0.5 Eos # (Auto) 0.0 Baso # (Auto) 0.0 Abs Immat Gran (auto) 0.08 H Absolute Neuts (auto) 8.1 Absolute Nucleated RBC 0.000 Nucleated RBC % (auto) 0.0 APTT 35.8 VBG pH VBG pCO2 VBG pO2 VBG HCO3 VBG O2 Saturation VBG Base Excess Sodium 140 Potassium 5.0 Chloride 107 Carbon Dioxide 22 Anion Gap 16 BUN 16 Creatinine 0.69 Estim Creat Clear Calc 100.8 Estimated GFR > 60 POC Glucose 161 H Random Glucose 182 H Lactic Acid Calcium 10.0 D Total Bilirubin 0.4 Direct Bilirubin 0.2 AST 16 ALT 16 Alkaline Phosphatase 53 Total Protein 6.9 Albumin 3.3 L Procalcitonin 0.03 02/14/23 02/14/23 02/14/23 13:25 14:45 15:02 WBC RBC Hgb Hct MCV MCH MCHC RDW Plt Count MPV Immature Gran % (Auto) Neut % (Auto) Lymph % (Auto) [place] % (Auto) Eos % (Auto) Baso % (Auto) Lymph # (Auto) [place] # (Auto) Eos # (Auto) Baso # (Auto) Abs Immat Gran (auto) Absolute Neuts (auto) Absolute Nucleated RBC Nucleated RBC % (auto) APTT VBG pH 7.41 7.37 VBG pCO2 36 31 VBG pO2 45 71 VBG HCO3 23 18 L VBG O2 Saturation 71.0 92.0 VBG Base Excess -0.6 -5.2 Sodium Potassium Chloride Carbon Dioxide Anion Gap BUN Creatinine Estim Creat Clear Calc Estimated GFR POC Glucose Random Glucose Lactic Acid 1.5 Calcium Total Bilirubin Direct Bilirubin AST ALT Alkaline Phosphatase Total Protein Albumin Procalcitonin 02/14/23 02/15/23 02/15/23 17:25 00:05 05:27 WBC 12.4 H RBC 3.61 L Hgb 11.0 L Hct 32.9 L MCV 91.1 MCH 30.5 MCHC 33.4 RDW 13.2 Plt Count 227 D MPV 11.7 Immature Gran % (Auto) 0.9 H Neut % (Auto) 68.4 Lymph % (Auto) 22.6 [place] % (Auto) 7.8 Eos % (Auto) 0.1 Baso % (Auto) 0.2 Lymph # (Auto) 2.8 [place] # (Auto) 1.0 Eos # (Auto) 0.0 Baso # (Auto) 0.0 Abs Immat Gran (auto) 0.11 H Absolute Neuts (auto) 8.5 H Absolute Nucleated RBC 0.000 Nucleated RBC % (auto) 0.0 APTT VBG pH 7.61 H* VBG pCO2 26 VBG pO2 79 VBG HCO3 26 VBG O2 Saturation 97.0 VBG Base Excess 6.2 Sodium 141 Potassium 4.1 Chloride 113 H Carbon Dioxide 20 L Anion Gap 12 BUN 19 H Creatinine 0.62 Estim Creat Clear Calc 117.8 Estimated GFR > 60 POC Glucose 194 H 152 H Random Glucose 153 H Lactic Acid Calcium 9.0 D Total Bilirubin 0.3 Direct Bilirubin 0.1 AST 11 ALT 11 Alkaline Phosphatase 46 Total Protein 5.6 L Albumin 2.6 L Procalcitonin 02/15/23 02/15/23 05:31 06:45 WBC RBC Hgb Hct MCV MCH MCHC RDW Plt Count MPV Immature Gran % (Auto) Neut % (Auto) Lymph % (Auto) [place] % (Auto) Eos % (Auto) Baso % (Auto) Lymph # (Auto) [place] # (Auto) Eos # (Auto) Baso # (Auto) Abs Immat Gran (auto) Absolute Neuts (auto) Absolute Nucleated RBC Nucleated RBC % (auto) APTT 30.1 VBG pH VBG pCO2 VBG pO2 VBG HCO3 VBG O2 Saturation VBG Base Excess Sodium Potassium Chloride Carbon Dioxide Anion Gap BUN Creatinine Estim Creat Clear Calc Estimated GFR POC Glucose 157 H Random Glucose Lactic Acid Calcium Total Bilirubin Direct Bilirubin AST ALT Alkaline Phosphatase Total Protein Albumin Procalcitonin Microbiology Microbiology Results: Microbiology 02/13/23 15:05 Blood - Venous Blood Culture - Preliminary No growth after 24 hours. 02/13/23 14:52 Blood - Venous Blood Culture - Preliminary No growth after 24 hours. Progress Note: A&P Assessment and plan (1) Pneumonia due to COVID-19 virus: Status: Acute Plan 62 Y M, baseline non-verbal, COPD, resides at [facility], found to be tachypneic, hypoxic, found to be COVID positive, c/b acute hypoxic respiratory failure, intubated 02/14 N: reportedly baseline non-verbal; intubated, sedated w/ propofol gtt; agitated on propofol gtt only, added fentanyl gtt CV: intermittent hypotention, likely d/t sedation; to continue to monitor closely R: COVID pneumonia, c/b acute hypoxic respiratory failure, intubated 02/14; dexamethasone, remdesivir GI: no acute issues; NPO, OG tube : no acute issues H: no acute issues ID: COVID as described above; of note, procalcitonin negative, lower suspicion for bacterial superinfection E: no acute issues Quality Stroke Does the patient have a stroke diagnosis?: No VTE Prior VTE?: No VTE Risk Level:: Medical - moderate - high VTE Device Contraindication: Treatment Not Indicated VTE Drug Contraindication: N/A - Med Ordered
[2023-02-15] MEDS: Benztropine Mesylate 1 MG TABLET PO (08:14)
[2023-02-15] MEDS: 0.9 % Sodium Chloride Flush 3 ML SYRINGE IVFLUSH ×2 (08:14→15:37)
[2023-02-15] MEDS: Famotidine 20 MG TABLET PO ×2 (08:14→20:11)
[2023-02-15] MEDS: dexAMETHasone sod phosphate 4 MG/ML VIAL 6 MG IVPUSH (08:14)
[2023-02-15] MEDS: propofoL 1,000 MG/100 ML VIAL 11.86 MG IVCONT (11:20)
[2023-02-15] MEDS: Dextrose 5 % and Lactated Ring 1,000 ML 80 ML IVCONT (11:20)
[2023-02-15 11:49] LABS: VBG Base Excess 1.1 mmol/L; VBG HCO3 24 mmol/L (22-26); VBG pCO2 35 mmHg; VBG pH 7.45 (7.32-7.43); VBG pO2 70 mmHg
[2023-02-15 11:57] LABS: Glucose, Whole Blood 169 mg/dL (60-115)
[2023-02-15 12:56] LABS: Venous Blood Gas Refer to POC result
[2023-02-15] MEDS: Remdesivir 100 MG in 0.9 % Sodium Chloride 230 ML 115 MG IV (13:33)
[2023-02-15] MEDS: Chlorhexidine Gluc Oral Rinse 15 ML MOUTHWASH BUCCAL ×2 (15:37→20:11)
[2023-02-15] MEDS: Norepinephrine Bitartrate/D5W 8 MG/250 ML PLAST..BAG 2.6 MG IV (16:23)
[2023-02-15 18:17] LABS: Venous Blood Gas Refer to POC result
[2023-02-15 18:19] LABS: Glucose, Whole Blood 262 mg/dL (60-115); VBG Base Excess 0.8 mmol/L; VBG HCO3 24 mmol/L (22-26); VBG pCO2 34 mmHg; VBG pH 7.45 (7.32-7.43); VBG pO2 158 mmHg
[2023-02-15] MEDS: propofoL 1,000 MG/100 ML VIAL 7.91 MG IVCONT ×2 (18:22→23:28)
[2023-02-15] MEDS: fentaNYL citrate/NS 1,000 MCG/100 ML PLAST..BAG 1.25 MCG IVCONT (18:28)
[2023-02-15] MEDS: DOPamine HCL/D5W 400 MG/250 ML PLAST..BAG 5.19 MG IVCONT (18:47)
--- NOTE | 2023-02-15 19:13 | PC.NURSE ---
Assumed care of patient 07:00 08:00 bed bath provided. pt tolerated position changes well, SaO2 90-95% 08:20 pt repositioned to right, mouth care provided. Pt desaturated to 84-86%. Inline suctioning and oral suctioning done with FiO2 100% , no improvement. RT called to bedside. Pt lavaged via ET tube and SaO2 improved to 92%. Pt positioned supine and repeat CXR obtained. No changes, LLL opacity. 09:00 urine output decreased from 25 ml/hr to 0-5 ml/hr. MD notified. IVF rate increased from 80 ml/hr to 100 mlhr. No improvements in urine output. pt bladder scanned. 129 ml in bladder. Jameson catheter adjusted and confirmed patency. 16:23 Levophed gtt started per MD to increased BP for low urine output. Levo @0.02 18:40 Per MD levophed d/c'd and dopamine gtt started @2 mcg/kg/min for low HR 47
[2023-02-15] MEDS: Enoxaparin Sodium 40 MG/0.4 ML SYRINGE SUBCUT (20:10)
[2023-02-15] MEDS: Dextrose 5 % and Lactated Ring 1,000 ML 100 ML IVCONT (21:33)
[2023-02-15 23:24] LABS: Glucose, Whole Blood 213 mg/dL (60-115)
[2023-02-16] VITALS (34 sets, daily range): BP systolic 82–184; BP diastolic 41–85; PULSE 46–80; RESP 12–22; TEMP 34.6–37.2; O2SAT 94–99; BMI 21.3
[2023-02-16] MEDS: Magnesium Sulfate/H2O 2 GM/50 ML PIGGYBACK IV (02:16)
[2023-02-16 04:41] LABS: VBG Base Excess -0.6 mmol/L; VBG HCO3 21 mmol/L (22-26); VBG pCO2 28 mmHg; VBG pH 7.48 (7.32-7.43); VBG pO2 99 mmHg
[2023-02-16 04:44] LABS: Venous Blood Gas Refer to POC result
[2023-02-16 04:56] LABS: MANUAL DIFF FLAG NO
[2023-02-16 04:57] LABS: Basophils Percent Auto 0.2 % (0-2); Eosinophils Percent Auto 0.1 % (0-4); Hematocrit 29.8 % (42.0-52.0); Imm Gran Abs Auto 0.05 X10*3/uL (0.00-0.03); Imm Gran Pct Auto 0.5 % (0.0-0.4); Lymphocytes Absolute Auto 2.2 X10*3/uL (1.2-4.9); Lymphocytes Percent Auto 22.3 % (20-40); Mean Corpuscular HGB Conc 33.6 g/dl (31.0-36.0); Mean Corpuscular Hemoglobin 30.7 pg (27.0-33.0); Mean Corpuscular Volume 91.4 fL (80.0-98.0); Mean Platelet Volume 11.4 fL (9.4-12.4); Monocytes Absolute Auto 1.1 X10*3/uL (0.1-1.2); Monocytes Percent Auto 11.4 % (2-11); Neutrophils Absolute Auto 6.4 x10*3/uL (2.0-8.3); Neutrophils Percent Auto 65.5 % (45-73); Platelet Count 294 X10*3/uL (160-400); Red Blood Count 3.26 X10*6/uL (4.60-5.80); Red Cell Distribution Width 13.2 % (11.0-16.0); White Blood Count 9.8 X10*3/uL (4.8-10.8)
[2023-02-16 05:13] LABS: Alanine Aminotransferase 10 U/L (0-40); Albumin Level 2.5 g/dL (3.5-5.0); Alkaline Phosphatase 55 U/L (39-117); Anion Gap 13 (12-20); Aspartate Amino Transferase 9 U/L (5-37); Bilirubin Total 0.3 mg/dL (0.0-1.0); Blood Urea Nitrogen 14 mg/dL (9-16); Calcium 8.9 mg/dL (8.4-10.2); Carbon Dioxide 21 mmol/L (22-29); Chloride 110 mmol/L (96-108); Creatinine Clr Calc Pharmacy 114.1; Estimated Glomerular Filt Rate > 60; Glucose Random 477 mg/dL (60-115); Magnesium 1.8 mg/dL (1.6-2.6); Phosphorus 2.7 mg/dL (2.7-4.5); Potassium 4.1 mmol/L (3.3-5.1); Sodium 140 mmol/L (135-145); Total Protein 5.4 g/dL (6.5-8.0)
[2023-02-16] MEDS: Insulin Lispro 100 UNIT/ML 3 ML VIAL SUBCUT ×2 (05:24→17:07)
[2023-02-16] MEDS: Midazolam HCl/PF 2 MG/2 ML VIAL 5 MG IVPUSH (05:42)
[2023-02-16] MEDS: Lactated Ringers 1,000 ML 100 ML IVCONT ×2 (05:43→15:01)
--- NOTE | 2023-02-16 06:25 | P.PNCC_ITS ---
Subjective Subjective Date of Service: 02/16/23 Interval History: 62-year-old schizophrenic as well as hypertensive and type 2 diabetic presented with acute hypoxic respiratory failure which was intractable on noninvasive ventilation requiring intubation and ultimately testing positive for COVID-19 has been has patchy bilateral infiltrates but extensive consolidation mostly left lower lobe and lingula and remains intubated but on a reduced FiO2 now from 100-40% with a diminished at minute ventilatory requirement the only other issue is that he had an inappropriate degree of sinus bradycardia with rates mostly in the 40s and intractable despite sympathomimetic support which we introduced because urine output fell and I did a bedside echo and found that he had globally normal systolic wall motion of the left ventricle and right ventricle with no primary valve or pericardial disease and I figured that based on the bradycardia he and also his borderline blood pressure he might not have an adequate GFR and sure enough urine output picked up beautifully just with the addition of dopamine titrated to 10 micrograms/kilogram to give us a at least a 15% increase in heart rate his inferior vena caval diameter was 1.8 cm and because he was on the ventilator so he was adequately filled we maintained the volume intake of his Ringer's lactate just simply added the on a trophic and chronotropic support Critical Care Time (minutes): 45 Physical Exam 2 Vital Signs: Vital Signs: Last Vital Signs Temp 98.6 F 02/16/23 06:00 Pulse 49 L 02/16/23 06:00 Resp 12 02/16/23 06:00 BP 143/56 H 02/16/23 06:00 Pulse Ox 95 02/16/23 06:00 O2 Del Method Mechanical Ventil ation 02/16/23 06:00 O2 Flow Rate 4 02/14/23 12:00 FiO2 40 02/16/23 06:00 Oxygen Flow Rate 15 02/13/23 14:07 BMI result Body Mass Index 21.3 so vital signs are excellent with pressure of 147/61 heart rate now 71 and sinus at and the is 95% oxygen saturation bedside echo with normal LV function chest x-ray with left lower lobe opacity consistent with consolidation abdomen soft tolerating feedings no organomegaly cardiac exam it chest EKG with nonspecific IVCD good bilateral carotid upstrokes no neck vein distension no gallops Objective Data Labs 02/16/23 04:37 02/16/23 04:37 Labs: Laboratory Results - last 24 hr 1002/15/23 02/15/23 06:45 11:44 11:49 WBC RBC Hgb Hct MCV MCH MCHC RDW Plt Count MPV Immature Gran % (Auto) Neut % (Auto) Lymph % (Auto) [place] % (Auto) Eos % (Auto) Baso % (Auto) Lymph # (Auto) [place] # (Auto) Eos # (Auto) Baso # (Auto) Abs Immat Gran (auto) Absolute Neuts (auto) Absolute Nucleated RBC Nucleated RBC % (auto) APTT 30.1 VBG pH 7.45 H VBG pCO2 35 VBG pO2 70 VBG HCO3 24 VBG O2 Saturation 93.0 VBG Base Excess 1.1 Sodium Potassium Chloride Carbon Dioxide Anion Gap BUN Creatinine Estim Creat Clear Calc Estimated GFR POC Glucose 169 H Random Glucose Calcium Phosphorus Magnesium Total Bilirubin AST ALT Alkaline Phosphatase Total Protein Albumin 02/15/23 02/15/23 02/16/23 18:13 23:19 04:36 WBC RBC Hgb Hct MCV MCH MCHC RDW Plt Count MPV Immature Gran % (Auto) Neut % (Auto) Lymph % (Auto) [place] % (Auto) Eos % (Auto) Baso % (Auto) Lymph # (Auto) [place] # (Auto) Eos # (Auto) Baso # (Auto) Abs Immat Gran (auto) Absolute Neuts (auto) Absolute Nucleated RBC Nucleated RBC % (auto) APTT VBG pH 7.45 H 7.48 H VBG pCO2 34 28 VBG pO2 158 99 VBG HCO3 24 21 L VBG O2 Saturation 100.0 99.0 VBG Base Excess 0.8 -0.6 Sodium Potassium Chloride Carbon Dioxide Anion Gap BUN Creatinine Estim Creat Clear Calc Estimated GFR POC Glucose 262 H 213 H Random Glucose Calcium Phosphorus Magnesium Total Bilirubin AST ALT Alkaline Phosphatase Total Protein Albumin 02/16/23 04:37 WBC 9.8 RBC 3.26 L Hgb 10.0 L Hct 29.8 L MCV 91.4 MCH 30.7 MCHC 33.6 RDW 13.2 Plt Count 294 D MPV 11.4 Immature Gran % (Auto) 0.5 H Neut % (Auto) 65.5 Lymph % (Auto) 22.3 [place] % (Auto) 11.4 H Eos % (Auto) 0.1 Baso % (Auto) 0.2 Lymph # (Auto) 2.2 [place] # (Auto) 1.1 Eos # (Auto) 0.0 Baso # (Auto) 0.0 Abs Immat Gran (auto) 0.05 H Absolute Neuts (auto) 6.4 Absolute Nucleated RBC 0.000 Nucleated RBC % (auto) 0.0 APTT VBG pH VBG pCO2 VBG pO2 VBG HCO3 VBG O2 Saturation VBG Base Excess Sodium 140 Potassium 4.1 Chloride 110 H Carbon Dioxide 21 L Anion Gap 13 BUN 14 Creatinine 0.64 Estim Creat Clear Calc 114.1 Estimated GFR > 60 POC Glucose Random Glucose 477 H* Calcium 8.9 Phosphorus 2.7 Magnesium 1.8 Total Bilirubin 0.3 AST 9 ALT 10 Alkaline Phosphatase 55 Total Protein 5.4 L Albumin 2.5 L Microbiology Microbiology Results: Microbiology 02/13/23 15:05 Blood - Venous Blood Culture - Preliminary No growth after 48 hours. 02/13/23 14:52 Blood - Venous Blood Culture - Preliminary No growth after 48 hours. Progress Note: A&P Assessment and plan (1) Pneumonia due to COVID-19 virus: Status: Acute (2) Pneumonia: Status: Acute (3) COVID-19: Status: Acute (4) Acute hypoxic respiratory failure: Status: Acute (5) Sinus bradycardia: Status: Acute (6) Symptomatic sinus bradycardia: Status: Acute Plan so the plan is to maintain the dopamine and we will continue with remdesivir and Decadron and ventilatory support but we are utilizing Versed drip for that purpose took away all the negative chronotropic influences of propofol and fentanyl Quality Stroke Does the patient have a stroke diagnosis?: No VTE Prior VTE?: No VTE Risk Level:: Medical - moderate - high VTE Device Contraindication: Treatment Not Indicated VTE Drug Contraindication: N/A - Med Ordered
[2023-02-16] MEDS: Midazolam HCl/NS 50 MG/50 ML PLAST..BAG IVCONT ×3 (06:35→19:37)
[2023-02-16] MEDS: Chlorhexidine Gluc Oral Rinse 15 ML MOUTHWASH BUCCAL ×3 (08:11→22:13)
[2023-02-16] MEDS: 0.9 % Sodium Chloride Flush 3 ML SYRINGE IVFLUSH ×3 (08:12→22:13)
[2023-02-16] MEDS: dexAMETHasone sod phosphate 4 MG/ML VIAL 6 MG IVPUSH (08:12)
[2023-02-16] MEDS: Famotidine 20 MG TABLET PO (08:12)
[2023-02-16] MEDS: DOPamine HCL/D5W 400 MG/250 ML PLAST..BAG 20.76 MG IVCONT (09:40)
--- NOTE | 2023-02-16 09:51 | MHC.CLN ---
RE: CONSULT PT IS INTUBATED AND SEDATED CURRENTLY NPO PT WITH INCREASED NUTRITION RISK R/T PRESSURE INJURY IF TF NEEDED; RECOMMEND JEVITY 1.0 AT MAX GOAL RATE 85ML/HR WITH 120ML FREE WATER Q 6 HRS TO PROVIDE 2162KCALS (30KCALS/KG), 90G PROTEIN (1.3G/KG), 2183ML TOTAL WATER FROM FORMULA AMD FLUSHES (30.6ML/KG) MONITOR TOLERANCE, RESIDUALS AND LYTES SEE ALSO FULL CLINICAL NUTRITION ASSESSMENT
[2023-02-16 11:58] LABS: Glucose, Whole Blood 150 mg/dL (60-115)
[2023-02-16] MEDS: Remdesivir 100 MG in 0.9 % Sodium Chloride 230 ML 115 MG IV (13:18)
--- NOTE | 2023-02-16 13:26 | MHC.CM.PN ---
Pt continues care in ICU: on ventilatory support: Pt is a [facility] term[facility] resident of [facility]: bedhold: and will return when medically cleared. Pt has a legal guardian who is also his court appointed HCP and not his sister as previously noted by prior HCP on file. Pt will need BLS return transport
[2023-02-16] MEDS: Midazolam HCl/PF 2 MG/2 ML VIAL IVPUSH (16:57)
[2023-02-16 17:11] LABS: Glucose, Whole Blood 231 mg/dL (60-115)
[2023-02-16] MEDS: Enoxaparin Sodium 40 MG/0.4 ML SYRINGE SUBCUT (19:24)
[2023-02-16] MEDS: DOPamine HCL/D5W 400 MG/250 ML PLAST..BAG 10.38 MG IVCONT (22:09)
[2023-02-16 23:45] LABS: Glucose, Whole Blood 153 mg/dL (60-115)
[2023-02-17] VITALS (31 sets, daily range): BP systolic 107–179; BP diastolic 59–88; PULSE 50–109; RESP 12–22; TEMP 35–37.4; O2SAT 92–98; BMI 19.9
[2023-02-17] MEDS: Lactated Ringers 1,000 ML 100 ML IVCONT (01:35)
[2023-02-17 05:17] LABS: Glucose, Whole Blood 167 mg/dL (60-115)
[2023-02-17] MEDS: Midazolam HCl/NS 50 MG/50 ML PLAST..BAG IVCONT (05:23)
[2023-02-17] MEDS: Insulin Lispro 100 UNIT/ML 3 ML VIAL SUBCUT ×3 (05:24→17:40)
[2023-02-17 05:50] LABS: MANUAL DIFF FLAG NO
[2023-02-17 05:51] LABS: Basophils Percent Auto 0.1 % (0-2); Eosinophils Percent Auto 0.3 % (0-4); Hematocrit 31.6 % (42.0-52.0); Imm Gran Abs Auto 0.04 X10*3/uL (0.00-0.03); Imm Gran Pct Auto 0.5 % (0.0-0.4); Lymphocytes Percent Auto 34.2 % (20-40); Mean Corpuscular HGB Conc 34.8 g/dl (31.0-36.0); Mean Corpuscular Hemoglobin 30.4 pg (27.0-33.0); Mean Corpuscular Volume 87.3 fL (80.0-98.0); Mean Platelet Volume 10.4 fL (9.4-12.4); Monocytes Absolute Auto 0.9 X10*3/uL (0.1-1.2); Monocytes Percent Auto 10.1 % (2-11); Neutrophils Absolute Auto 4.8 x10*3/uL (2.0-8.3); Neutrophils Percent Auto 54.8 % (45-73); Platelet Count 382 X10*3/uL (160-400); Red Blood Count 3.62 X10*6/uL (4.60-5.80); Red Cell Distribution Width 12.8 % (11.0-16.0); White Blood Count 8.7 X10*3/uL (4.8-10.8)
[2023-02-17 05:56] LABS: ABG Base Excess 5.3 mmol/L; ABG HCO3 25 mmol/L (22-26); ABG pCO2 25 mmHg (32-45); ABG pH 7.61 (7.35-7.45); ABG pO2 95 mmHg (83-108)
[2023-02-17 05:59] LABS: ABG Refer to POC result
[2023-02-17 06:09] LABS: Albumin Level 2.8 g/dL (3.5-5.0); Anion Gap 14 (12-20); Blood Urea Nitrogen 11 mg/dL (9-16); Calcium 8.9 mg/dL (8.4-10.2); Carbon Dioxide 22 mmol/L (22-29); Chloride 108 mmol/L (96-108); Creatinine Clr Calc Pharmacy 139.5; Estimated Glomerular Filt Rate > 60; Glucose Random 181 mg/dL (60-115); Magnesium 1.3 mg/dL (1.6-2.6); Phosphorus 2.3 mg/dL (2.7-4.5); Potassium 3.3 mmol/L (3.3-5.1); Sodium 141 mmol/L (135-145)
[2023-02-17] MEDS: Magnesium Sulfate/H2O 2 GM/50 ML PIGGYBACK IV (06:19)
[2023-02-17] MEDS: Potassium Chloride Packet 20 MEQ PACKET 40 MEQ PO (06:36)
[2023-02-17] MEDS: 0.9 % Sodium Chloride Flush 3 ML SYRINGE IVFLUSH ×3 (07:31→22:17)
[2023-02-17] MEDS: Famotidine/PF 20 MG/2 ML VIAL IVPUSH ×2 (08:09→22:15)
[2023-02-17] MEDS: Chlorhexidine Gluc Oral Rinse 15 ML MOUTHWASH BUCCAL ×3 (08:09→22:15)
[2023-02-17] MEDS: dexAMETHasone sod phosphate 4 MG/ML VIAL 6 MG IVPUSH (08:09)
--- NOTE | 2023-02-17 09:31 | MHC.CLN ---
F/U CURRENTLY DAY 3 NPO PT WITH INCREASED NUTRITION RISK R/T PRESSURE INJURY IF TF NEEDED; RECOMMEND JEVITY 1.0 AT MAX GOAL RATE 85ML/HR WITH 120ML FREE WATER Q 6 HRS TO PROVIDE 2162KCALS (30KCALS/KG), 90G PROTEIN (1.3G/KG), 2183ML TOTAL WATER FROM FORMULA AND FLUSHES (30.6ML/KG) MONITOR TOLERANCE, RESIDUALS AND LYTES
[2023-02-17 11:19] LABS: Glucose, Whole Blood 195 mg/dL (60-115)
[2023-02-17] MEDS: Remdesivir 100 MG in 0.9 % Sodium Chloride 230 ML 115 MG IV (13:04)
--- NOTE | 2023-02-17 14:57 | HO.WOUND ---
Wound Consult: Initial 62yr old male [place] [facility] [place]02[place]13/23 19:13- See progress notes and H&P for detailed history. Sacral Photo failed to upload at bedside. Left Lateral Foot Right Heel Left Heel Sacrum / Coccyx Etiology: DTI (Deep Tissue Injury on Admission she skin photo) declared to reveal stage 2 pressure injury POA Wound Bed: dark red maroon wound bed with nonblanchable edges and central thin veil of yellow slough at wound bed. Drainage / Odor: None Edges: ? Irregular and attached Phyllis wound: ? Dry intact pink blanchable tissue No Induration, NoFluctuance Goals of Treatment: ? Off Load Pressure and Protect from moisture with barrier cream and Foam Left Heel Etiology: Stage 1 Pressure Injury POA Measurements: see detailed assessment for measurements Wound Bed: red intact nonblanchable tissue Drainage / Odor: None Edges: ?Attached Phyllis wound: ? Intact tissue No Induration, No Fluctuance, No Erythema, No Warmth Goals of Treatment: ? Off Load Pressure and protect from friction with foam and off loading boots. Right Heel Etiology: Stage 1 Pressure Injury POA Measurements: see detailed assessment for measurements Wound Bed: red intact nonblanchable tissue Drainage / Odor: None Edges: ?Attached Phyllis wound: ? Intact tissue No Induration, No Fluctuance, No Erythema, No Warmth Goals of Treatment: ? Off Load Pressure and protect from friction with foam and off loading boots. Left Lateral Foot Etiology: Stage 1 Pressure Injury POA Measurements: see detailed assessment for measurements Wound Bed: red intact nonblanchable tissue Drainage / Odor: None Edges: ?Attached Phyllis wound: ? Intact tissue No Induration, No Fluctuance, No Erythema, No Warmth Goals of Treatment: ? Off Load Pressure and protect from friction with foam and off loading boots. Recommendations: 1. Turn and Reposition every 2 hours and as needed for patient comfort consider use of wedges available in the storeroom. 2. Off Load all bony prominences with use of pillows, wedges and heel boots. 3. Monitor for incontinence and moisture control. 4. Provide adequate and supplemental nutrition. 5. Order or Continue low air loss mattress. 6. Maintain blood glucose levels per Providers orders. 7. Bilateral Heels and Left Lateral Foot - Off Load Pressure in off Loading Boots. Apply Foam dressing to bony prominence, peel back and assess Q shirt and change every 2-3 days and PRN. 8. Coccyx / sacral area - Off Load Pressure - Cleanse with PH balance spray, pat dry. ?Apply thin layer of barrier cream to wound bed. Cover with foam dressing. Peel back and assess Q shift and change every 2 days and PRN. Re-consult wound care Nurse for wound deterioration or wound changes.
--- NOTE | 2023-02-17 17:15 | P.PNCC_ITS ---
Subjective Subjective Date of Service: 02/17/23 Interval History: 62-year-old schizophrenic on anti psychotic medications presented with acute hypoxic respiratory failure from multilobar COVID 19 pneumonia requiring intubation and today successfully extubated after demonstrating minimal minute ventilation requirement of 6 L minimal FiO2 of 30% with excellent vital capacity reserve Critical Care Time (minutes): 45 Physical Exam 2 Vital Signs: Vital Signs: Last Vital Signs Temp 99.3 F 02/17/23 16:00 Pulse 90 02/17/23 16:20 Resp 16 02/17/23 16:00 BP 135/75 02/17/23 16:20 Pulse Ox 92 02/17/23 16:00 O2 Del Method Mechanical Ventil ation 02/17/23 16:00 O2 Flow Rate 4 02/14/23 12:00 FiO2 40 02/17/23 16:00 Oxygen Flow Rate 15 02/13/23 14:07 BMI result Body Mass Index 19.9 normal sinus rhythm rate 83 weaned to minimal dopamine and probably will be able to be weaned off sinus rhythm at 85 per minute oxygen saturation 93% on nasal cannula respirations 20-22 blood pr essure 127/63 bedside echo normal LV and RV function abdomen benign no organomegaly scattered fine rales bilaterally Objective Data Labs 02/17/23 05:44 02/17/23 05:44 Labs: Laboratory Results - last 24 hr 02/16/23 02/17/23 02/17/23 23:41 05:10 05:44 WBC 8.7 RBC 3.62 L Hgb 11.0 L Hct 31.6 L MCV 87.3 MCH 30.4 MCHC 34.8 RDW 12.8 Plt Count 382 D MPV 10.4 Immature Gran % (Auto) 0.5 H Neut % (Auto) 54.8 Lymph % (Auto) 34.2 [place] % (Auto) 10.1 Eos % (Auto) 0.3 Baso % (Auto) 0.1 Lymph # (Auto) 3.0 [place] # (Auto) 0.9 Eos # (Auto) 0.0 Baso # (Auto) 0.0 Abs Immat Gran (auto) 0.04 H Absolute Neuts (auto) 4.8 Absolute Nucleated RBC 0.000 Nucleated RBC % (auto) 0.0 O2 Saturation ABG pH at Pt Temp ABG pCO2 at Pt Temp ABG pO2 at Pt Temp ABG HCO3 ABG Base Excess (Actual) Sodium 141 Potassium 3.3 Chloride 108 Carbon Dioxide 22 Anion Gap 14 BUN 11 Creatinine 0.54 Estim Creat Clear Calc 139.5 Estimated GFR > 60 POC Glucose 153 H 167 H Random Glucose 181 H Calcium 8.9 Phosphorus 2.3 L Magnesium 1.3 L* Albumin 2.8 L 02/17/23 02/17/23 05:46 11:15 WBC RBC Hgb Hct MCV MCH MCHC RDW Plt Count MPV Immature Gran % (Auto) Neut % (Auto) Lymph % (Auto) [place] % (Auto) Eos % (Auto) Baso % (Auto) Lymph # (Auto) [place] # (Auto) Eos # (Auto) Baso # (Auto) Abs Immat Gran (auto) Absolute Neuts (auto) Absolute Nucleated RBC Nucleated RBC % (auto) O2 Saturation 99.0 ABG pH at Pt Temp 7.61 H* ABG pCO2 at Pt Temp 25 L ABG pO2 at Pt Temp 95 ABG HCO3 25 ABG Base Excess (Actual) 5.3 Sodium Potassium Chloride Carbon Dioxide Anion Gap BUN Creatinine Estim Creat Clear Calc Estimated GFR POC Glucose 195 H Random Glucose Calcium Phosphorus Magnesium Albumin Microbiology Microbiology Results: Microbiology 02/13/23 15:05 Blood - Venous Blood Culture - Preliminary No growth after 48 hours. 02/13/23 14:52 Blood - Venous Blood Culture - Preliminary No growth after 48 hours. Progress Note: A&P Assessment and plan (1) Symptomatic sinus bradycardia: Status: Acute (2) Sinus bradycardia: Status: Acute (3) Acute hypoxic respiratory failure: Status: Acute (4) Pneumonia due to COVID-19 virus: Status: Acute (5) Pneumonia: Status: Acute (6) COVID-19: Status: Acute Plan the plan is to observe on the nasal cannula if he remains stable will corroborate with blood gas might be able to downgrade to IMCU Quality Stroke Does the patient have a stroke diagnosis?: No VTE Prior VTE?: No VTE Risk Level:: Medical - moderate - high VTE Device Contraindication: Treatment Not Indicated VTE Drug Contraindication: N/A - Med Ordered
[2023-02-17 17:17] LABS: Glucose, Whole Blood 175 mg/dL (60-115)
[2023-02-17] MEDS: Enoxaparin Sodium 40 MG/0.4 ML SYRINGE SUBCUT (22:15)
[2023-02-18] VITALS (16 sets, daily range): BP systolic 117–160; BP diastolic 52–70; PULSE 50–73; RESP 12–21; TEMP 36.1–37.2; O2SAT 90–100; BMI 19.8
[2023-02-18 00:46] LABS: Glucose, Whole Blood 99 mg/dL (60-115)
--- NOTE | 2023-02-18 02:38 | PC.NURSE ---
1900 ASSUMED CARE OF PT. PT ALERT AND RESPONSIVE. FOLLOWS COMMANDS. DISORIENTED TO TIME, PLACE AND SITUATION. SPEECH IS HOARSE AND WEAK. NODS HEAD YES OR NO APPROPRIATELY. PALMA WEAKLY. NO RESP DISTRESS ON NASAL CANNULA AT 5L. CONGESTED COUGH NOTED. LUNGS WITH SCATTERED RHONCHI, DIM IN BASES. PT WAS DTV #1 AT [address]30. EXTERNAL CATH IN PLACE. PT PULLED OFF CATH AND WAS INCONTINENT OF LARGE AMOUNT OF URINE. DTV #2 AT 0400. SWALLOW EVAL DONE AND PT DID NOT PASS. PT HELD WATER IN HIS MOUTH WITH DELAYED SWALLOW AND WET COUGH NOTED. ORDER ENTERED BY PROVIDER FOR FORMAL CONSULT FROM [facility]. MONITOR SHOWS NSR, 70'S WHEN AWAKE. NOW HEART RATE 50'S SB.
--- NOTE | 2023-02-18 04:43 | PC.NURSE ---
BLADDER WAS SCANNED FOR 200 ML OF URINE. PROVIDER AWARE. EXTERNAL CATH REMAINS IN PLACE WITH ONLY 20 ML OF URINE. MONITOR CONTINUES SB, 50'S, RARE PVC. BP STABLE.
[2023-02-18 05:08] LABS: VBG Base Excess 1.2 mmol/L; VBG HCO3 23 mmol/L (22-26); VBG pCO2 31 mmHg; VBG pH 7.49 (7.32-7.43); VBG pO2 66 mmHg
[2023-02-18 05:09] LABS: MANUAL DIFF FLAG NO
[2023-02-18 05:12] LABS: Basophils Percent Auto 0.2 % (0-2); Eosinophils Percent Auto 0.3 % (0-4); Hematocrit 31.8 % (42.0-52.0); Hemoglobin 10.6 g/dl (14.0-18.0); Imm Gran Abs Auto 0.03 X10*3/uL (0.00-0.03); Imm Gran Pct Auto 0.3 % (0.0-0.4); Lymphocytes Absolute Auto 3.1 X10*3/uL (1.2-4.9); Lymphocytes Percent Auto 33.4 % (20-40); Mean Corpuscular HGB Conc 33.3 g/dl (31.0-36.0); Mean Corpuscular Hemoglobin 29.9 pg (27.0-33.0); Mean Corpuscular Volume 89.6 fL (80.0-98.0); Mean Platelet Volume 10.5 fL (9.4-12.4); Monocytes Absolute Auto 0.9 X10*3/uL (0.1-1.2); Monocytes Percent Auto 9.6 % (2-11); Neutrophils Absolute Auto 5.3 x10*3/uL (2.0-8.3); Neutrophils Percent Auto 56.2 % (45-73); Platelet Count 391 X10*3/uL (160-400); Red Blood Count 3.55 X10*6/uL (4.60-5.80); White Blood Count 9.4 X10*3/uL (4.8-10.8)
[2023-02-18 05:27] LABS: Albumin Level 2.7 g/dL (3.5-5.0); Anion Gap 13 (12-20); Blood Urea Nitrogen 17 mg/dL (9-16); Calcium 8.7 mg/dL (8.4-10.2); Carbon Dioxide 21 mmol/L (22-29); Chloride 111 mmol/L (96-108); Creatinine Clr Calc Pharmacy 125.7; Estimated Glomerular Filt Rate > 60; Glucose Random 116 mg/dL (60-115); Magnesium 1.6 mg/dL (1.6-2.6); Phosphorus 3.8 mg/dL (2.7-4.5); Potassium 3.9 mmol/L (3.3-5.1); Sodium 141 mmol/L (135-145)
[2023-02-18 06:07] LABS: Venous Blood Gas Refer to POC result
[2023-02-18] MEDS: Magnesium Sulfate/D5W 1 GM/100 ML PIGGYBACK IV (06:34)
--- NOTE | 2023-02-18 07:58 | P.PNCC_ITS ---
Subjective Subjective Date of Service: 02/18/23 Interval History: 62-year-old with a underlying schizoaffective disorder presented with acute COVID-19 pneumonitis with patchy bilateral infiltrates and acute hypoxic respiratory failure requiring intubation extubated to 24 hours ago with doing beautifully throughout the whole day and nits observation on just nasal cannula and there was clinical as well as chest x-ray clearing yesterday so at this point the he can probably be downgraded but he needs a swallow study because bedside swallow exam he failed Critical Care Time (minutes): 35 Physical Exam 2 Vital Signs: Vital Signs: Last Vital Signs Temp 98.8 F 02/18/23 03:00 Pulse 55 02/18/23 07:00 Resp 16 02/18/23 07:00 BP 144/63 H 02/18/23 07:00 Pulse Ox 92 02/18/23 07:00 O2 Del Method Oxymask 02/18/23 07:00 O2 Flow Rate 5 02/18/23 07:00 FiO2 30 02/17/23 16:00 Oxygen Flow Rate 15 02/13/23 14:07 BMI result Body Mass Index 19.8 normal sinus rhythm at rates between 50 and 60 but he has an asymptomatic bradycardia pressure is 117/50 with mean of 73 oxygen saturation 92% respirations 17 good bilateral carotid upstrokes no neck vein distension no gallops abdomen soft no organomegaly lungs clear without adventitious sounds Objective Data Labs 02/18/23 04:54 02/18/23 04:54 Labs: Laboratory Results - last 24 hr 02/17/23 02/17/23 02/18/23 11:15 17:10 00:27 WBC RBC Hgb Hct MCV MCH MCHC RDW Plt Count MPV Immature Gran % (Auto) Neut % (Auto) Lymph % (Auto) [place] % (Auto) Eos % (Auto) Baso % (Auto) Lymph # (Auto) [place] # (Auto) Eos # (Auto) Baso # (Auto) Abs Immat Gran (auto) Absolute Neuts (auto) Absolute Nucleated RBC Nucleated RBC % (auto) VBG pH VBG pCO2 VBG pO2 VBG HCO3 VBG O2 Saturation VBG Base Excess Sodium Potassium Chloride Carbon Dioxide Anion Gap BUN Creatinine Estim Creat Clear Calc Estimated GFR POC Glucose 195 H 175 H 99 Random Glucose Calcium Phosphorus Magnesium Albumin 02/18/23 02/18/23 04:54 05:03 WBC 9.4 RBC 3.55 L Hgb 10.6 L Hct 31.8 L MCV 89.6 MCH 29.9 MCHC 33.3 RDW 13.0 Plt Count 391 MPV 10.5 Immature Gran % (Auto) 0.3 Neut % (Auto) 56.2 Lymph % (Auto) 33.4 [place] % (Auto) 9.6 Eos % (Auto) 0.3 Baso % (Auto) 0.2 Lymph # (Auto) 3.1 [place] # (Auto) 0.9 Eos # (Auto) 0.0 Baso # (Auto) 0.0 Abs Immat Gran (auto) 0.03 Absolute Neuts (auto) 5.3 Absolute Nucleated RBC 0.000 Nucleated RBC % (auto) 0.0 VBG pH 7.49 H VBG pCO2 31 VBG pO2 66 VBG HCO3 23 VBG O2 Saturation 92.0 VBG Base Excess 1.2 Sodium 141 Potassium 3.9 Chloride 111 H Carbon Dioxide 21 L Anion Gap 13 BUN 17 H Creatinine 0.56 Estim Creat Clear Calc 125.7 Estimated GFR > 60 POC Glucose Random Glucose 116 H Calcium 8.7 Phosphorus 3.8 Magnesium 1.6 Albumin 2.7 L Microbiology Microbiology Results: Microbiology 02/13/23 15:05 Blood - Venous Blood Culture - Preliminary No growth after 48 hours. 02/13/23 14:52 Blood - Venous Blood Culture - Preliminary No growth after 48 hours. Progress Note: A&P Assessment and plan (1) Symptomatic sinus bradycardia: Status: Acute (2) Sinus bradycardia: Status: Acute (3) Acute hypoxic respiratory failure: Status: Acute (4) Pneumonia due to COVID-19 virus: Status: Acute (5) Pneumonia: Status: Acute Plan so the plan therefore is to wean his Decadron I think but formal swallow study to start him back on on his nutrition and maybe physical rehab and and I would say psych consult to organize his anti psychotic medications which I reduced while he was under sedation Quality Stroke Does the patient have a stroke diagnosis?: No VTE Prior VTE?: No VTE Risk Level:: Medical - moderate - high VTE Device Contraindication: Treatment Not Indicated VTE Drug Contraindication: N/A - Med Ordered
[2023-02-18] MEDS: Famotidine/PF 20 MG/2 ML VIAL IVPUSH ×2 (08:30→22:07)
[2023-02-18] MEDS: dexAMETHasone sod phosphate 4 MG/ML VIAL 5 MG IVPUSH (08:31)
[2023-02-18] MEDS: 0.9 % Sodium Chloride Flush 3 ML SYRINGE IVFLUSH ×3 (08:38→22:07)
--- NOTE | 2023-02-18 09:53 | MHC.CLN ---
F/U CURRENTLY DAY 4 NPO AWAITING FORMAL DIE CUTTER EVAL TO ADVANCE DIET PT WITH INCREASED NUTRITION RISK R/T PRESSURE INJURY IF DIET TO ADVANCE, RECOMMEND 2200DM DIET IN ADDITION TO DIE CUTTER RECOMMENDATIONS WILL ADD ENSURE MAX BID TO PROMOTE WOUND HEALING SUPP TO PROVIDE 300KCALS, 60G PROTEIN MONITOR FOR DIET ADVANCEMENT
--- NOTE | 2023-02-18 10:16 | MHC.SLORD ---
Speech Language Pathology Order Status: MARKETING SALES CONSULTANT spoke w/ [facility] who confirmed baseline diet of regular solids and thin liquids. [facility] reports pt has allergy of ceffeine and chocolate. RN and MD notified. Per RT, pt extubated 4pm on 02/17. RN note at 0230 02/18 reports pt failed RN swallow screen. MARKETING SALES CONSULTANT policy is to perform bedside swallow evaluation 24+ hours s/p extubation. MD requests pt to be evaluated today. Pt sound asleep this morning during MARKETING SALES CONSULTANT check-in. Per RN, pt on nasal cannula at 5L. MARKETING SALES CONSULTANT to attempt swallow eval later this date.
--- NOTE | 2023-02-18 11:07 | MHC.CM.PN ---
EMR reviewed. Pt was successfully extubated, now on oxymask, may transfer out of ICU today. CM will continue to follow.
[2023-02-18 12:02] LABS: Glucose, Whole Blood 181 mg/dL (60-115)
[2023-02-18] MEDS: Insulin Lispro 100 UNIT/ML 3 ML VIAL SUBCUT (12:39)
--- NOTE | 2023-02-18 13:58 | PC.NURSE ---
Patient arrived from ICU slide to bed, oriented to room, call reed system and staff. Very soft spoken alert to self and hospital. Follows some simple commands. PALMA to command BUE 3/5, BLE 1/5 able to wiggle toes sensation intact per patient. Boots to BLE in place heels elevated off bed. Denies pain/discomfort. LS clear RUE only, dim otherwise throughout more so to right side remains on oxygen at 6L satting 97 decreased to 5L on arrival. BS+X4 abdomen non-tender denies nausea/vomiting. Remains NPO speech to see patient at 1600 for swallow eval. [place] catheter leaking [facility] care provided and [place] placed bag with dark yellow urine. Foam dressing to coccyx intact stage II noted to coccyx. Bed in lowest locked position alarm for safety. Will continue to monitor and report changes
[2023-02-18] MEDS: Remdesivir 100 MG in 0.9 % Sodium Chloride 230 ML 115 MG IV (15:02)
--- NOTE | 2023-02-18 16:43 | PM.EVENT ---
Event Note Date of Service: 02/18/23 Event Note: Transfer from ICU today Patient with history of schizoaffective affective disorder/COVID pneumonia Required intubation for persistent hypoxia with finger oximetry 70-75% extubated 02 17, oxygenation stable on 2 L nasal cannula 92% respiratory rate 16 Continue IV remdesivir and dexamethasone Noted to have sinus bradycardia remained asymptomatic Swallow eval pending speech therapist attempted to evaluate patient today however patient was noted to be sleeping, they will re-evaluate at a.m. Will place on 1 L of Ringer lactate solution Continue Psych medications, manager of program recommend psych eval for review of home medication Time Spent With Patient Time: Total time managing care of this patient today ____ minutes.
[2023-02-18] MEDS: Lactated Ringers 1,000 ML 80 ML IVCONT (17:07)
--- NOTE | 2023-02-18 17:30 | MHC.SL.SWA ---
Speech Pathologist Impression: Risk of Aspiration Risk of Aspiration Due to: Hx of Recent Extubation Reduced Cognition Dysphasia Diet Status: NPO Liquid Consistency and Strategies for Safe Swallow: Liquid Intake Recommendation: NPO Solid Food Consistency: Dietary Recommendations: NPO Oral Medication Intake: NPO Please contact the pharmacy regarding appropriate crushable or liquid drug formulations that are available whenever modified delivery is recommended. Recommendation for Speech: Inpatient Speech Therapy Comment: D/t pt's noticeable fatigue during limited PO trials and risk of aspiration recommend pt continue NPO and be re-evaluated by PHOTOGRAMMETRIC TECHNICIAN tomorrow. Pt at risk of aspiration d/t weak cough, weak voice, prolonged intubation (approx 72 hours), cognition. Recommend strict oral care and aspiration precautions. PHOTOGRAMMETRIC TECHNICIAN to re-eval tomorrow. Digital Imager Clinican/Clinical Fellow: No Supervisory Statement: I have reviewed and agree with the student/clinical fellow's documentation: N/A Speech Language Pathologist: Analia Mackenzie M.A., CCC-PHOTOGRAMMETRIC TECHNICIAN
[2023-02-18 18:59] LABS: Glucose, Whole Blood 162 mg/dL (60-115)
[2023-02-18 20:02] LABS: Glucose, Whole Blood 155 mg/dL (60-115)
[2023-02-18] MEDS: Benztropine Mesylate 1 MG TABLET PO (22:06)
[2023-02-18] MEDS: Divalproex Sodium Sprinkles 125 MG CAP.DR.SPR 1000 MG PO (22:06)
[2023-02-18] MEDS: Enoxaparin Sodium 40 MG/0.4 ML SYRINGE SUBCUT (22:06)
[2023-02-18] MEDS: OLANZapine 10 MG TABLET PO (22:06)
[2023-02-18 23:59] LABS: Glucose, Whole Blood 116 mg/dL (60-115)
[2023-02-19 03:25] VITALS: BP 163/75; PULSE 54; RESP 14; TEMP 36.2; O2SAT 98
[2023-02-19 05:26] LABS: Glucose, Whole Blood 111 mg/dL (60-115)
[2023-02-19 06:00] VITALS: BMI 17.5
[2023-02-19 07:35] VITALS: BP 141/73; PULSE 55; RESP 16; TEMP 36.1; O2SAT 99
--- NOTE | 2023-02-19 09:58 | MHC.SL.SWA ---
Speech Pathologist Impression: Risk of Aspiration Due to: Hx of Recent Extubation Reduced Cognition Dysphasia Diet Status: Recommend Patient Start diet of Ground Mechanical Altered (NDD2) with [place] Thick liquids to start, Pills whole in puree. Liquid Consistency and Strategies for Safe Swallow: Liquid Intake Recommendation: [place] Thick Liquid Intake Strategies: Small Sips Solid Food Consistency: Dietary Recommendations: Grnd/Mech Altered (NDD2) Additional Modifications to Solid Foods: Patient currently having difficulty feeding self due to weakness, tremulousness, at a minimum should have supervision during his meals to assure that he is eating drinking safely, is able to access and manage handling food and drink items and cutlery, giving assistance where needed. Straw when drinking [place] Thick liquids o.k. Oral Medication Intake: Whole with Puree Please contact the pharmacy regarding appropriate crushable or liquid drug formulations that are available whenever modified delivery is recommended. Compensatory Strategies and Precautions to be Taken for Safe Swallow: Sitting Upright (90 deg) Liquids from Cup Liquids from Straw Small Bites and Sips Alternate Liquids/Solids Avoid Specific Foods Supervision While Eating and Drinking for Safe Swallow: Total Supervision (1:1) Foods to Avoid: Mixed consistencies Swallowing Recommended Treatments: Gustatory Stimulation Recommendation for Speech: Inpatient Speech Therapy Comment: Patient seen yesterday for evaluation to restart diet with DROP FORGER HELPER recommending continued NPO until patient re-evaluated this morning. Patient was sleeping at onset, but was easily awakened and cooperative with all PO trials. planer setter have previously documented that at [facility], he is on a regular diet with thin liquids. Patient is edentulous, and reports he never wears dentures. Patient was given 1/2 tsp of thin liquid, produce a repeated cough after swallow, with patient nodding head to did it go down the wrong way? Patient was later given more trials with tsp, cup sip and straw sip of water, with improved toleration, though wet vocal quality and throat clearing noted after straw sips. Patient given tsp, cup sip and straw sip of nectar thick liquids with good toleration, timely swallow, no clinical signs of aspiration. Patient was given several tsps of pudding, with timely oral phase, timely swallow, laryngeal elevation WFL. Patient given softened cookie in pudding, with patient producing a mildly prolonged period of chewing/mashing, timely swallow, mild residual noted in mouth cleared by wash of liquid. Recommend Patient Start diet of Ground Mechanical Altered (NDD2) with [place] Thick liquids to start, Pills whole in puree. Patient currently having difficulty feeding self due to weakness, tremulousness, at a minimum should have supervision during his meals to assure that he is eating drinking safely, is able to access and manage handling food and drink items and cutlery, giving assistance where needed. Straw when drinking [place] Thick liquids o.k. , RD notified of recommendations by secure text, RN in person, DROP FORGER HELPER will continue to follow. Frequency/Duration: Date Range for Service Req: Timeline to reassess: PRN Policy Service Coordinator Clinican/Clinical Fellow: No Supervisory Statement: I have reviewed and agree with the student/clinical fellow's documentation: N/A Speech Language Pathologist: Analia Mackenzie M.A., CCC-DROP FORGER HELPER
[2023-02-19] MEDS: Famotidine/PF 20 MG/2 ML VIAL IVPUSH (10:25)
[2023-02-19] MEDS: 0.9 % Sodium Chloride Flush 3 ML SYRINGE IVFLUSH ×3 (10:25→22:54)
[2023-02-19] MEDS: dexAMETHasone sod phosphate 4 MG/ML VIAL 5 MG IVPUSH (10:25)
[2023-02-19] MEDS: Divalproex Sodium Sprinkles 125 MG CAP.DR.SPR 1000 MG PO ×2 (10:26→22:52)
[2023-02-19] MEDS: Losartan Potassium 25 MG TABLET PO (10:26)
[2023-02-19] MEDS: Benztropine Mesylate 1 MG TABLET PO ×2 (10:26→22:52)
[2023-02-19] MEDS: Paliperidone ER 9 MG TAB.ER.24 PO (10:26)
[2023-02-19 11:47] LABS: Glucose, Whole Blood 147 mg/dL (60-115)
[2023-02-19 11:49] VITALS: BP 138/76; PULSE 67; RESP 16; TEMP 36.3; O2SAT 98
--- NOTE | 2023-02-19 12:48 | MHC.CM.PN ---
EMR reviewed, pt step down from icu on 02/18, pt remains on 5l O2 nc and IV decadron, no plan for dc at this time, [facility], cm will cont to follow dc needs.
--- NOTE | 2023-02-19 13:42 | HO.PM.IMPN ---
Subjective Subjective Date of Service: 02/19/23 Interval History: seen and examined this morning follow up for COVID 19, downgraded from the ICU 02/18 patient awake and alert, able to answer basic questions, speaks slowly was able to say they haven't been feeding me when asked about diet/swallowing knows his name, but not place or year Review of Systems Review of Systems: Yes all other systems are reviewed and are negative Cardiovascular Cardiovascular: Denies chest pain and Denies dyspnea Respiratory Respiratory: Denies dyspnea Gastrointestinal Gastrointestinal: Denies abdominal pain Physical Exam Vital Signs: Vital Signs: Last Vital Signs Temp 97.4 F 02/19/23 11:49 Pulse 67 02/19/23 11:49 Resp 16 02/19/23 11:49 BP 138/76 02/19/23 11:49 Pulse Ox 98 02/19/23 11:49 O2 Del Method Nasal Cannula 02/19/23 11:49 O2 Flow Rate 5 02/19/23 11:49 FiO2 30 02/17/23 16:00 Oxygen Flow Rate 15 02/13/23 14:07 BMI result Body Mass Index 17.5 Const: General: cooperative, comfortable, no acute distress, alert and awake Orientation/consciousness: oriented to person Resp: Effort & Inspection: normal respiratory effort, able to speak in complete sentences, no respiratory distress and no use of accessory muscles Cardio: Rate: regular rate GI: Inspection: No distended Palpation (GI): Soft to palpation and nontender Skin: Other: offloading boots b/l lower extremities Neuro: Other: grossly nonfocal; slow to answer; oriented only to self able to move b/l upper extremities, wiggle toes General: oriented to person Extrem: General: Yes no pedal edema Objective Data Active Medications Benztropine Mesylate (Benztropine Mesylate 1 Mg Tablet) 1 mg PO BID [facility] Last Admin: 02/19/23 10:26 Dose: 1 mg Documented By: FABRIZIO Dexamethasone Sodium Phosphate (Dexamethasone Sod Phosphate 4 Mg/Ml Vial) 5 mg IVPUSH DAILY [facility] Stop: 02/23/23 09:01 Last Admin: 02/19/23 10:25 Dose: 5 mg Documented By: FABRIZIO Dextrose (Dextrose 50 % 25 Gm/50 Ml Syringe) 25 gm IVPUSH Q15M PRN; Protocol PRN Reason: per Hypoglycemia Standing Ord. Dextrose (Dextrose 50 % 25 Gm/50 Ml Syringe) 25 gm IVPUSH Q15M PRN; Protocol PRN Reason: per Hypoglycemia Standing Ord. Divalproex Sodium (Divalproex Sodium Sprinkles 125 Mg ) 1,000 mg PO BID [facility] Last Admin: 02/19/23 10:26 Dose: 1,000 mg Documented By: FABRIZIO Enoxaparin Sodium (Enoxaparin Sodium 40 Mg/0.4 Ml Syringe) 40 mg SUBCUT Q24H [facility] Last Admin: 02/18/23 22:06 Dose: 40 mg Documented By: OLYA Famotidine (Famotidine/Pf 20 Mg/2 Ml Vial) 20 mg IVPUSH BID [facility] Last Admin: 02/19/23 10:25 Dose: 20 mg Documented By: FABRIZIO Glucose (Glucose Gel 15 Gm Gel..Gram.) 15 gm PO Q15M PRN; Protocol PRN Reason: per Hypoglycemia Standing Ord. Glucose (Glucose Gel 15 Gm Gel..Gram.) 15 gm PO Q15M PRN; Protocol PRN Reason: per Hypoglycemia Standing Ord. Insulin Human Lispro (Insulin Lispro 100 Unit/Ml 3 Ml Vial) 0 unit SUBCUT Q6H [facility]; Protocol Last Admin: 02/19/23 12:13 Dose: Not Given Documented By: FABRIZIO Non-Admin Reason: No Insulin Coverage Losartan Potassium (Losartan Potassium 25 Mg Tablet) 25 mg PO DAILY [facility]; Protocol Last Admin: 02/19/23 10:26 Dose: 25 mg Documented By: FABRIZIO Olanzapine (Olanzapine 10 Mg Tablet) 10 mg PO BEDTIME [facility] Last Admin: 02/18/23 22:06 Dose: 10 mg Documented By: OLYA Comments: Per Paliperidone (Paliperidone Er 9 Mg Tab.Er.24) 9 mg PO DAILY [facility] Last Admin: 02/19/23 10:26 Dose: 9 mg Documented By: FABRIZIO Paliperidone Palmitate (Paliperidone Palmitate 234 Mg/1.5 Ml Syringe) 234 mg IM Q28D [facility] Last Admin: 02/14/23 18:29 Dose: Not Given Documented By: CALIXTOORRPaige Non-Admin Reason: Physician Held Med Sodium Chloride (0.9 % Sodium Chloride Flush 3 Ml Syringe) 3 ml IVFLUSH QSHIFT [facility] Last Admin: 02/19/23 10:25 Dose: 3 ml Documented By: FABRIZIO Labs 02/18/23 04:54 02/18/23 04:54 Labs: Laboratory Results - last 24 hr 02/18/23 02/18/23 02/18/23 18:54 19:57 23:40 POC Glucose 162 H 155 H 116 H 02/19/23 02/19/23 05:12 11:40 POC Glucose 111 147 H Microbiology Microbiology Results: Microbiology 02/13/23 15:05 Blood Culture - Final Blood - Venous No growth after 5 days. 02/13/23 14:52 Blood Culture - Final Blood - Venous No growth after 5 days. Assessment and Plan (1) Acute hypoxic respiratory failure: Status: Acute (2) Pneumonia due to COVID-19 virus: Status: Acute (3) Sinus bradycardia: Status: Acute Plan This is a 62-year-old male with pertinent history of essential hypertension, non insulin-dependent diabetes mellitus, mood disorder, LTC resident at [facility] sent in for hypoxia found to have COVID 19 initially admitted to medical floor subsequently transferred to the ICU for persistent hypoxia despite high flow oxygen necessitating intubation on 02/14. He was subsequently extubated 02/17 and downgraded back to the medical floor 02/18 Acute hypoxic respiratory failure secondary to multifocal pneumonia due to COVID 19 s/p intubation s/p tx with Remdesivir Continue IV decadron currently on 5L NC, wean oxygen as tolerated DM metformin on hold SSI, POCs seen by speech - tolerating NDD2 diet with nectar thick liquids HTN continue losartan chronic normocytic anemia H/H stable, above transfusion threshold Mood continue cogentin, invega, zyprexa, depakote some meds adjusted in ICU psych consult pending for ?medication adjustment unstagable pressure wound of coccyx continue local wound care, frequent repositioning see wound care nurse notes moderate protein calorie malnutrition BMI 17.6 dvt ppx - lovenox attending - Dr. Barton dispo - [facility] per CM notes: Guardian/court appointed HCP Feli Barahona [phone] requires ongoing inpatient hospitalization for supplemental oxygen and close monitoring of respiratory status Time Spent With Patient Time: Total time managing care of this patient today ____ minutes. Quality Stroke Does the patient have a stroke diagnosis?: No VTE Prior VTE?: No VTE Risk Level:: Medical - moderate - high VTE Device Contraindication: Treatment Not Indicated VTE Drug Contraindication: N/A - Med Ordered
--- NOTE | 2023-02-19 14:12 | HO.WOUND ---
Wound Consult: Follow Up 62yr old male admitted to [facility] on?02/13/23 19:13- See progress notes and H&P for detailed history. Sacrum / Coccyx Etiology: Unstageable Pressure Injury POA - Present to Hospital with Deep Tissue Injury in Evolution Wound Bed: dark red maroon wound bed with nonblanchable edges and central thin veil of yellow slough at wound bed. Drainage / Odor: None Edges: ? Irregular and attached Phyllis wound: ? Dry intact pink blanchable tissue No Induration, NoFluctuance Goals of Treatment: ? Off Load Pressure and Protect from moisture with Triad and Foam Bilateral Heels and Left Lateral Foot Stage 1 remain - pink intact tissue that now ramu - remain slow and well defined but appear to be resolving - continue to off load with boots and foam dressings. No new topical recommendations needed at this time. Recommendations: 1. Turn and Reposition every 2 hours and as needed for patient comfort consider use of wedges available in the storeroom. 2. Off Load all bony prominences with use of pillows, wedges and heel boots. 3. Monitor for incontinence and moisture control. 4. Provide adequate and supplemental nutrition. 5. Order or Continue low air loss mattress. 6. Maintain blood glucose levels per Providers orders. 7. Bilateral Heels and Left Lateral Foot - Off Load Pressure in Off Loading Boots. Apply Foam dressing to bony prominence, peel back and assess Q shirt and change every 2-3 days and PRN. 8. Coccyx / sacral area - Off Load Pressure - Cleanse with PH balance spray, pat dry. ?Apply thin layer of Triad to wound bed. Cover with foam dressing. Peel back and assess Q shift and change daily. Re-consult wound care Nurse for wound deterioration or wound changes.
[2023-02-19 15:18] VITALS: BP 138/68; PULSE 60; RESP 18; TEMP 36; O2SAT 98
[2023-02-19 16:35] LABS: Glucose, Whole Blood 250 mg/dL (60-115)
[2023-02-19] MEDS: Insulin Lispro 100 UNIT/ML 3 ML VIAL SUBCUT (17:44)
[2023-02-19 19:12] VITALS: BP 132/66; PULSE 68; RESP 16; TEMP 36; O2SAT 98
[2023-02-19] MEDS: Enoxaparin Sodium 40 MG/0.4 ML SYRINGE SUBCUT (22:51)
[2023-02-19] MEDS: Famotidine 20 MG TABLET PO (22:53)
[2023-02-19] MEDS: OLANZapine 10 MG TABLET PO (22:53)
[2023-02-19 23:51] VITALS: BP 130/60; PULSE 89; RESP 18; TEMP 36.6; O2SAT 96
[2023-02-20 00:42] LABS: Glucose, Whole Blood 160 mg/dL (60-115)
[2023-02-20 02:50] VITALS: BP 146/76; PULSE 53; RESP 17; TEMP 37.1; O2SAT 95
[2023-02-20 06:00] VITALS: BMI 17.9
[2023-02-20 06:22] LABS: Glucose, Whole Blood 115 mg/dL (60-115)
[2023-02-20 07:58] VITALS: BP 142/76; PULSE 65; RESP 20; TEMP 36.4; O2SAT 96
[2023-02-20] MEDS: Divalproex Sodium Sprinkles 125 MG CAP.DR.SPR 1000 MG PO (08:31)
[2023-02-20] MEDS: Benztropine Mesylate 1 MG TABLET PO (08:31)
[2023-02-20] MEDS: Famotidine 20 MG TABLET PO (08:31)
[2023-02-20] MEDS: Losartan Potassium 25 MG TABLET PO (08:31)
[2023-02-20] MEDS: Paliperidone ER 9 MG TAB.ER.24 PO (08:31)
[2023-02-20] MEDS: dexAMETHasone sod phosphate 4 MG/ML VIAL 5 MG IVPUSH (08:31)
[2023-02-20] MEDS: 0.9 % Sodium Chloride Flush 3 ML SYRINGE IVFLUSH (08:31)
--- NOTE | 2023-02-20 10:37 | PM.DS ---
DS: Providers Provider Date of Service: 02/20/23 Date of admission: 02/13/23 19:13 Date of discharge: 02/20/23 Primary care physician: RANDELL NUÑEZ Consults: 02/18/23 16:47 Consult to Psychiatry Routine Consulting Provider: Wendy Martínez Reason for consultation: psyche med adjustment Has provider been notified: No Attending physician on discharge: Dorian Barton Discharging clinician: Orquidea Soria DS: Diagnosis Discharge Diagnosis (1) Acute hypoxic respiratory failure: Status: Acute (2) Pneumonia due to COVID-19 virus: Status: Acute (3) Sinus bradycardia: Status: Acute DS: Summary Hospital Course Hospital Course: From H&P on the day of admission This is a 62-year-old male with pertinent history of essential hypertension, non insulin-dependent diabetes mellitus, mood disorder who was sent to the emergency department for evaluation of hypoxemia. Patient is nonverbal at baseline. Unable to obtain history from the patient. History obtained from ER provider and chart review. Patient was sent from [facility]. He he does not use oxygen at baseline. He was found to be tachypneic and satting 86% on room air and sent to the ER for further evaluation. In the emergency department, patient tested positive for COVID-19. Unable to obtain review of systems. This is a 62-year-old male with pertinent history of essential hypertension, non insulin-dependent diabetes mellitus, mood disorder, LTC resident at [facility] sent in for hypoxia found to have COVID 19 initially admitted to medical floor subsequently transferred to the ICU for persistent hypoxia despite high flow oxygen necessitating intubation on 02/14. He was subsequently extubated 02/17 and downgraded back to the medical floor 02/18 Acute hypoxic respiratory failure secondary to multifocal pneumonia due to COVID 19 s/p intubation and requiring ICU level of care. He was treated with course of Remdesivir and IV decadron. Respiratory status improved and he was successfully extubated on 02/17. His oxygen has been titrated down and he is currently saturating in the high 90s on 4L NC with no respiratory distress. He was seen by speech who recommended NDD2 diet with nectar thick liquids. Recommend ongoing speech evaluation as patient strength improves. While he was in the ICU he was noted to have bradycardia, bedside echo by linesperson revealed globally normal systolic wall motion of the left ventricle and right ventricle with no primary valve or pericardial disease. On the medical floor vital signs have remained stable. Dose of bedtime zyprexa was decreased to 10 during stay in ICU, can consider resuming to previous dose of 20 as clinically indicated. Continue to wean oxygen as tolearted. DM seen by speech - tolerating NDD2 diet with nectar thick liquids. metformin was placed on hold during hospitalization and blood sugars have remained stable. can resume upon discharge. chronic normocytic anemia H/H stable, above transfusion threshold unstagable pressure wound of coccyx. was seen by wound care nurse with following recommendations: Turn and Reposition every 2 hours and as needed for patient comfort consider use of wedges Off Load all bony prominences with use of pillows, wedges and heel boots. Monitor for incontinence and moisture control. Bilateral Heels and Left Lateral Foot - Off Load Pressure in Off Loading Boots. Apply Foam dressing to bony prominence, peel back and assess Q shirt and change every 2-3 days and PRN. Coccyx / sacral area - Off Load Pressure - Cleanse with PH balance spray, pat dry. ?Apply thin layer of Triad to wound bed. Cover with foam dressing. Peel back and assess Q shift and change daily. moderate protein calorie malnutrition BMI 17.6. recommend ongoing Time Spent with Patient Time attestation: Total time managing care of this patient today ____ minutes. Discharge coordination time: Greater than 30 minutes Quality: Safe Use of Opioids Does Pt have an Active Cancer Diagnosis on the Problem List?: No Quality: Stroke Does the patient have a stroke diagnosis?: No Physical Exam Vital Signs: Vital Signs: Last Vital Signs Temp 97.6 F 02/20/23 07:58 Pulse 65 02/20/23 07:58 Resp 20 02/20/23 07:58 BP 142/76 H 02/20/23 07:58 Pulse Ox 96 02/20/23 07:58 O2 Del Method Nasal Cannula 02/20/23 07:58 O2 Flow Rate 4 02/20/23 07:58 FiO2 30 02/17/23 16:00 Oxygen Flow Rate 15 02/13/23 14:07 BMI result Body Mass Index 17.9 Const: Other: patient observed sitting up in bed, awake, alert and able to answer simple questions. following basic commands. General: cooperative, comfortable and no acute distress Nutritional Appearance: thin Resp: Effort & Inspection: normal respiratory effort, able to speak in complete sentences, no respiratory distress and no use of accessory muscles Cardio: Rate: regular rate GI: Inspection: No distended Palpation (GI): Soft to palpation and nontender Extrem: General: Yes no pedal edema DS: Data Data Completed and Pending Labs on day of discharge: Laboratory Results - last 24 hr 02/19/23 02/19/23 02/20/23 11:40 16:26 00:35 POC Glucose 147 H 250 H 160 H 02/20/23 06:18 POC Glucose 115 Discharge Plan Discharge Anticipated Discharge Date/Time: 02/20/23 13:00 Patient Disposition: Xfer [facility] Discharge Diagnosis: acute respiratory failure with hypoxia due to COVID 19 pneumonia Referrals: RANDELL NUÑEZ [Primary Care Provider] - 1 Week Discharge Medications: New olanzapine 10 mg Tablet 10 mg PO BEDTIME 30 Days Qty: 30 0RF dexamethasone 6 mg tablet 6 mg PO DAILY 3 Days Qty: 3 0RF Continued permethrin 5 % cream 1 appl topical ONCE divalproex 500 mg tablet,delayed release (DR/EC) 1,000 mg PO BID famotidine 20 mg tablet 20 mg PO BID metformin 1,000 mg tablet 1,000 mg PO BID losartan 25 mg tablet 25 mg PO DAILY benztropine 1 mg tablet 1 mg PO BID paliperidone 9 mg tablet extended release 24 hr 9 mg PO DAILY Invega Sustenna 234 mg/1.5 mL syringe 234 mg IM Q28D Held gabapentin 300 mg capsule 300 mg PO BID Hold Instructions: was held during hospitalization, resume as indicated Discontinued olanzapine 20 mg tablet 20 mg PO BEDTIME Activity on Discharge: As tolerated Stand Alone Forms: Patient Portal Discharge page Care Plan Goals: see below Health Concerns: acute respiratory failure secondary to covid 19 pneumonia Plan of Treatment: complete 3 more days of decadron wean oxygen as tolearted dose of xyprexa decreased to 10, baseline 20, can resume previous dose as indicated continue local wound care/frequent repositioning for chonic wounds currently tolerating NDD2 ground/mechanically altered diet and nectar thick liquids. continue speech therapy outpatient Assessment: see discharge summary
[2023-02-20 11:01] LABS: Glucose, Whole Blood 185 mg/dL (60-115)
[2023-02-20 11:24] VITALS: BP 139/68; PULSE 76; RESP 20; TEMP 36.1; O2SAT 100
--- NOTE | 2023-02-20 11:25 | MHC.CLN ---
F/U PT WITH INCREASED NUTRITION RISK R/T PRESSURE INJURY DIET ADVANCED TO 1800DM GRD M/S WITH NT LIQ-RECOMMEND 2200DM DIET TO INCREASE KCALS WILL ADD GELATEIN BID TO PROMOTE WOUND HEALING SUPP TO PROVIDE 320KCALS, 40G PROTEIN MONITOR FOR DIET ADVANCEMENT
[2023-02-20] MEDS: Insulin Lispro 100 UNIT/ML 3 ML VIAL SUBCUT (11:49)
--- NOTE | 2023-02-20 12:49 | MHC.SL.SWA ---
Speech Pathologist Impression: Risk of aspiration, oropharyngeal dysphagia Risk of Aspiration Due to: Hx of Recent Extubation Reduced Cognition Dysphasia Diet Status: Continue diet of Ground Mechanical Altered (NDD2) with Oblong Thick liquids, Pills whole in puree. Liquid Consistency and Strategies for Safe Swallow: Liquid Intake Recommendation: Oblong Thick Liquid Intake Strategies: Small Sips Solid Food Consistency: Dietary Recommendations: Grnd/Mech Altered (NDD2) Additional Modifications to Solid Foods: Patient currently having difficulty feeding self due to weakness, tremulousness, at a minimum should have supervision during his meals to assure that he is eating drinking safely, is able to access and manage handling food and drink items and cutlery, giving assistance where needed. Straw when drinking Oblong Thick liquids o.k. Oral Medication Intake: Whole with Puree Please contact the pharmacy regarding appropriate crushable or liquid drug formulations that are available whenever modified delivery is recommended. Compensatory Strategies and Precautions to be Taken for Safe Swallow: Sitting Upright (90 deg) Liquids from Cup Liquids from Straw Small Bites and Sips Alternate Liquids/Solids Avoid Specific Foods Supervision While Eating and Drinking for Safe Swallow: Total Supervision (1:1) Foods to Avoid: Mixed consistencies Swallowing Recommended Treatments: Gustatory Stimulation Recommendation for Speech: Inpatient Speech Therapy Date Range for Service Req: Timeline to reassess: PRN Flow Nurse Clinican/Clinical Fellow: No Supervisory Statement: I have reviewed and agree with the student/clinical fellow's documentation: N/A Speech Language Pathologist: Sabine Corrales M.A., CCC-DELIVERY DRIVER/CUSTOMER SERVICE
--- NOTE | 2023-02-20 13:14 | MHC.CM.PN ---
Addendum entered by Josie Rodriguez RN 02/20/23 13:43: CM CONTACTED [facility] AT [phone] [id number], [facility] AGREEABLE TO DC PLAN, PT SCHEDULED FOR 1330 HOWEVER AMBULANCE RUNNING LATE. Original Note: CM ATTEMPTED TO CONTACT [facility] [phone] X5 ON DIFFERENT PHONE LINES, HOWEVER LINE IS BUSY AND CM UNABLE TO LEAVE MESSAGE, IMM TO BE SENT CERTIFIED MAIL, PT MEDICALLY CLEARED FRO D/C BACL TO [facility] FOR TRANSPORT AT 1:30PM.
== END 2023-02-20 14:31 | DRG 208 ==
LOC: HO.ED 18:26 → HO.EDOVER 19:18 → HO.IMC 21:10 → HO.ICU 02-14 13:11 → HO.IMC 02-18 12:13
PROVIDERS: Hospitalist; Internal Medicine; Internal Medicine Critical Care Medicine; Nurse Practitioner Family; Physician Assistant Medical; Admitting Provider Student in an Organized Health Care Education/Training Program; Emergency Provider Emergency Medicine; PCP Emergency Medicine; Visit Provider Physician Assistant Medical
DX: U07.1 COVID-19 (principal); J12.82 Pneumonia due to coronavirus disease 2019; J96.01 Acute respiratory failure with hypoxia; E44.0 Moderate protein-calorie malnutrition; Z68.1 Body mass index [BMI] 19.9 or less, adult; J44.0 Chronic obstructive pulmonary disease with (acute) lower respiratory infection; R00.1 Bradycardia, unspecified; E11.9 Type 2 diabetes mellitus without complications; D64.9 Anemia, unspecified; F20.9 Schizophrenia, unspecified; F17.210 Nicotine dependence, cigarettes, uncomplicated; L89.150 Pressure ulcer of sacral region, unstageable; Z71.6 Tobacco abuse counseling; F03.90 Unspecified dementia, unspecified severity, without behavioral disturbance, psychotic disturbance, mood disturbance, and anxiety; Z79.84 Long term (current) use of oral hypoglycemic drugs; Z79.899 Other long term (current) drug therapy
CPT/HCPCS: 36415; 36600; 71045; 71275; 80048; 80053; 80076; 81003; 82040; 82248; 82803; 82947; 83605; 83735; 83880; 84100; 84145; 84484; 85025; 85610; 85730; 87040; 87502; 87635; 92526; 92610; 93005; 94002; 94003; 94799; 99285; C1758; J0248; J1100; J1265; J1650; J1956; J2250; J2251; J3010; J3475; Q9967

== ENCOUNTER → 2023-02-13 19:13 | Outpatient (BNV) | payer MEDICARE, MEDICAID, SELFPAY | PROVIDERS: Admitting Provider Student in an Organized Health Care Education/Training Program; Emergency Provider Emergency Medicine; PCP Emergency Medicine; Visit Provider Student in an Organized Health Care Education/Training Program | DX: J96.01 Acute respiratory failure with hypoxia (principal); U07.1 COVID-19; J12.82 Pneumonia due to coronavirus disease 2019; R00.1 Bradycardia, unspecified | CPT/HCPCS: 99222; 99232; 99233; 99239; 99499 ==

== ENCOUNTER → 2023-02-13 19:13 | Outpatient (BNV) | payer MEDICARE, MEDICAID, SELFPAY | PROVIDERS: Admitting Provider Student in an Organized Health Care Education/Training Program; Emergency Provider Emergency Medicine; PCP Emergency Medicine; Visit Provider Internal Medicine Critical Care Medicine | DX: J96.01 Acute respiratory failure with hypoxia (principal); U07.1 COVID-19; J12.82 Pneumonia due to coronavirus disease 2019; R00.1 Bradycardia, unspecified; J18.9 Pneumonia, unspecified organism | CPT/HCPCS: 31500; 99291; 99292 ==